=== PATIENT | male | born 1965 | race Caucasian/White ===

== ENCOUNTER → 2016-09-27 | Day surgery (SDC) | payer BC ==
[2016-09-24 10:38] VITALS: Ht 185.4 cm; Wt 79.5 kg
[~2016-09-27] VITALS: Ht 185.4 cm; Wt 79.5 kg
[~2016-09-27] MED LIST: 500ML BSS 0.3ML EPI 1:1000PF IRRIG ONE; ACETAMINOPHEN 325 MG TAB PO PRN; ALBU18002 INH; AMLO10TA4 PO; AMVISC PLUS 0.8ML SYRINGE INT OCU ONE; ATROPINE SULFATE 0.1 MG/ML 5ML SYR IV PRN; BENA20TA14 PO; BRIMONIDINE TART 0.2% OP SOLN PER DROP CHARGE ONE; BSS FLUSH ONE; ENDOCOAT 0.85ML SYRINGE INT OCU ONE; EpHEDrine SULFATE INJ 50 MG/ML AMP IV PRN; EpINEphrine INJ 1MG/ML AMP 1 MG/ML AMP ONE; FENTANYL CITRATE INJ 50 MCG/1 ML 2 ML VIAL ONE; FLUT0.15 INH; LACTATED RINGER'S 1000ML 500 ML IV SCH; LIDOCAINE 4% OP SOLN DROP CHARGE ONE; LIDOCAINE 4% OP SOLN DROP CHARGE OPL SCH; LIDOCAINE HCL 1% MPF 2 ML VIAL ONE; LORA10TA44 PO; MAGN1CAP2 PO; METO100T14 PO; MIDAZOLAM HCL 1 MG/ML 2ML VIAL ONE; MOXIFLOXACIN OPH SOLN PER DROP CHARGE ONE; POVIDONE-IODINE OP SOLN 30 ML BTL ONE; PROPARACAINE 0.5% OP SOLN PER DROP CHARGE OPL SCH; TOBRAMYCIN/DEXAMETHASONE OPH OINT PER APPLN CHARGE ONE; TRYPAN BLUE 0.06% FOR SURGI CENTER ONLY OP ONE
[2016-09-27] MEDS: PHENYLEPHRINE HCL 2.5% OP SOLN PER DROP CHARGE OPL SCH ×2 (08:37→08:42)
--- NOTE | 2016-09-27 08:37 | History & Physical Bridge - [place] ---
H&P Re-Evaluation Bridge Note: I have examined the patient, reviewed the History & Physical and in the interval since the performance of the History & Physical I have noted the following changes of clinical significance: No changes noted
[2016-09-27] MEDS: TROPICAMIDE 1% OP SOLN PER DROP CHARGE OPL SCH ×2 (08:38→08:43)
[2016-09-27] MEDS: CYCLOPENTOLATE HCL 1% OP SOLN PER DROP CHARGE OPL SCH ×2 (08:39→08:44)
[2016-09-27] MEDS: KETOROLAC 0.5% OP SOLN PER DROP CHARGE OPL SCH ×2 (08:40→08:45)
[2016-09-27] MEDS: MOXIFLOXACIN OPH SOLN PER DROP CHARGE OPL SCH ×2 (08:41→08:46)
--- NOTE | 2016-09-27 10:13 | Discharge Instructions-SurgCtr ---
Discharge Instructions Visit Reason for Visit: Cataract Left Eye Discharge Discharge Diagnosis / Problem: cataract left eye Discharge Goals Goal(s): Improve function Activity Recommendations Activity Limitations: per Instructions/Follow-up section Lifting Limitations: no more than 5 pounds Anesthesia . Post Anesthesia Instructions: If you have had General Anesthesia or IV Sedation: * Do not drive today. * Resume driving when surgeon permits. * Do not make important decisions or sign legal documents today. * Call surgeon for: 1. Temperature elevations greater than 101 degrees F. 2. Uncontrollable pain. 3. Excessive bleeding. 4. Persistent nausea and vomiting. 5. Medication intolerance (nausea, vomiting or rash). * For nausea and vomiting use only clear liquids such as: tea, soda, bouillon until nausea subsides, then gradually increase diet as tolerated. * If you have any concerns or questions, call your surgeon's office. If physician is unavailable and it is an emergency, call 911 or go to the nearest emergency room. . Instructions / Follow-Up Instructions / Follow-Up ACTIVITY RECOMMENDATIONS: * Light activities * You may walk outside, read, watch television. * Mild irritation and blurred vision are common for the first few days, redness around the white part of the eye is common. MEDICATIONS: Resume previous medications unless instructed otherwise by your surgeon. Eye drops (today and tomorrow): Ofloxacin - one drop in operative eye every 2 hours while awake Prednisolone 1% - one drop in operative eye every 2 hours while awake Bromfenac - one drop in operative eye once daily SPECIAL CARE INSTRUCTIONS: * If any problems or concerns, please call Dr. Huang's office at . * Keep plastic shield taped over eye to sleep at night. * Keep plastic shield taped over eye except to administer eye drops. * Keep plastic shield on until office visit the following day. FOLLOW UP VISIT: Follow-up with Dr. Huang in the [place] office as scheduled. If not already scheduled, please call the office at . Diet Recommendations Home Diet: resume previous diet Procedures Procedures Performed: Left Cataract Phacoemulsification With Intraocular Lens Implant Pending Studies Studies pending at discharge: no Medical Emergencies . Who to Call and When: Medical Emergencies: If at any time you feel your situation is an emergency, please call 911 immediately. . Non-Emergent Contact Non-Emergency issues call your: Quality Control Engineer . . "Provider Documentation" section prepared by Justen Huang.
--- NOTE | 2016-09-27 10:13 | [facility] Post Operative Brief Note ---
Immediate Operative Summary Operative Date Sep 27, 2016. Pre-Operative Diagnosis cataract left eye Post-Operative Diagnosis same Procedure(s) Performed Left Cataract Phacoemulsification With Intraocular Lens Implant Surgeon Dr. Huang Social Organization Professor Surgeon(s) none Estimated Blood Loss 0 Findings cataract left eye Specimens none Complication(s) None Disposition Recovery Room / PACU
[2016-09-27 10:17] VITALS: TEMP 37.6
[2016-09-27 10:39] VITALS: BP 132/85; PULSE 85; O2SAT 95
--- NOTE | 2016-09-27 10:45 | Anesthesia Progress Nt - [facility] ---
Anesthesia Post Op Note Date & Time Sep 27, 2016 at 10:46 Vital Signs Pain Intensity: 0 Vital Signs Past 12 Hours Date Time Temp Pulse Resp B/P Pulse Ox O2 Delivery O2 Flow Rate FiO2 09/27/16 10:39 85 18 132/85 95 Room Air 09/27/16 10:17 37.6 85 16 120/79 94 Room Air 09/27/16 08:33 36.6 88 16 168/96 94 Room Air Notes Mental Status: alert / awake / arousable, participated in evaluation Pt Amnestic to Procedure: Yes Nausea / Vomiting: adequately controlled Pain: adequately controlled Airway Patency, RR, SpO2: stable & adequate BP & HR: stable & adequate Hydration State: stable & adequate Anesthetic Complications: no major complications apparent
--- NOTE | 2016-09-27 10:58 | OPERATIVE REPORT ---
DATE OF OPERATION: 09/27/2016 PREOPERATIVE DIAGNOSIS: Complex white cataract, left eye. POSTOPERATIVE DIAGNOSIS: Same. PROCEDURE PERFORMED: Phacoemulsification cataract extraction with intraocular lens placement with the assistance of Vision Blue capsular stain left eye. OPERATION AND FINDINGS: After informed consent was obtained in the holding area the patient was wheeled back to the Operating Room where cardiac monitoring leads and oxygen by nasal cannula was administered by Anesthesia. Gentle IV sedation was given, and the patient's left eye was prepped and draped in usual sterile fashion. A wire lid speculum was placed into the left eye and the operating microscope was swung into position. Using 0.12 forceps and a Supersharp blade a paracentesis port was made 3 o'clock hours away from the 3 o'clock position of patient's left eye. 1% non-preserved Lidocaine was then injected into the anterior chamber for anesthesia. It should be noted that prior to capsulorrhexis and viscoelastic placement air was injected into the anterior chamber through the paracentesis underneath which vision blue was used to stain the capsular bag. This was then irrigated out of the eye and viscoelastic material was placed in the eye. Prior to the capsulorrhexis a 30 gauge half inch needle was used to stab the center of the lens capsule and at aspirate some liquified cortex from the lens in order to decrease the pressure of the lens. A 2.2 mm keratotome blade was then used to make a shelved clear corneal incision at the 3 o'clock position of the patient's left eye. Amvisc was injected into the anterior chamber and a cystotome and Utrata forceps were used to perform a curvilinear capsulorrhexis. BSS on a hydrodissection cannula was used to hydrodissect the lens nucleus away from the capsular bag. The phacoemulsification handpiece was then used in a stop and chop fashion to remove the lens nucleus. The irrigation and aspiration handpiece was then used to remove the residual cortical material. Amvisc was injected into the capsular bag and anterior chamber and a Bausch \T\ Lomb MX60, 21.0 Diopter intraocular lens was injected into the capsular bag. Irrigation and aspiration handpiece was used to remove the residual viscoelastic material. The wounds were hydrated and noted to be watertight. The wire lid speculum was removed from the eye. Vigamox, Brimonidine, and TobraDex ointment were placed on the eye and it was shielded. EndoCoat was also used extensively throughout the case to protect the cornea endothelium. DISPOSITION: The patient tolerated the procedure well and was wheeled to the post anesthesia care unit in stable condition. I attest to the content of the Intraoperative Record and any orders documented therein. Any exceptions are noted below. I attest to the content of the Intraoperative Record and any orders documented therein. Any exceptions are noted below. MTDD
== END | disposition home or self-care (01) ==
LOC: X.SURG 08:24
PROVIDERS: ATTEND Ophthalmology
DX: H26.9 Unspecified cataract (principal); I10 Essential (primary) hypertension

== ENCOUNTER → 2016-10-11 | Day surgery (SDC) | payer BC ==
[2016-10-07 09:22] VITALS: Ht 185.4 cm; Wt 79.5 kg
[~2016-10-11] VITALS: Ht 185.4 cm; Wt 79.5 kg
[~2016-10-11] MED LIST changes: -LIDOCAINE 4% OP SOLN DROP CHARGE OPL SCH; +LIDOCAINE 4% OP SOLN DROP CHARGE OPR SCH; -PROPARACAINE 0.5% OP SOLN PER DROP CHARGE OPL SCH; +PROPARACAINE 0.5% OP SOLN PER DROP CHARGE OPR SCH; -TRYPAN BLUE 0.06% FOR SURGI CENTER ONLY OP ONE
[2016-10-11] MEDS: PHENYLEPHRINE HCL 2.5% OP SOLN PER DROP CHARGE OPR SCH ×2 (10:17→10:22)
[2016-10-11] MEDS: TROPICAMIDE 1% OP SOLN PER DROP CHARGE OPR SCH ×2 (10:18→10:23)
[2016-10-11] MEDS: CYCLOPENTOLATE HCL 1% OP SOLN PER DROP CHARGE OPR SCH ×2 (10:19→10:24)
[2016-10-11] MEDS: KETOROLAC 0.5% OP SOLN PER DROP CHARGE OPR SCH ×2 (10:20→10:25)
[2016-10-11] MEDS: MOXIFLOXACIN OPH SOLN PER DROP CHARGE OPR SCH ×2 (10:21→10:31)
[2016-10-11 11:21] VITALS: TEMP 36.8
--- NOTE | 2016-10-11 11:21 | [facility] Post Operative Brief Note ---
Immediate Operative Summary Operative Date Oct 11, 2016. Pre-Operative Diagnosis Cataract right eye Post-Operative Diagnosis same Procedure(s) Performed Right Cataract Phacoemulsification With Intraocular Lens Implant Surgeon Dr Huang Deck Mate Surgeon(s) 0 Estimated Blood Loss 0 Findings cataract right eye Specimens 0 Complication(s) None Disposition Recovery Room / PACU
--- NOTE | 2016-10-11 11:21 | Discharge Instructions-SurgCtr ---
Discharge Instructions Visit Reason for Visit: Cataract Right Eye Discharge Discharge Diagnosis / Problem: cataract right eye Discharge Goals Goal(s): Improve function Activity Recommendations Activity Limitations: per Instructions/Follow-up section Lifting Limitations: no more than 5 pounds Anesthesia . Post Anesthesia Instructions: If you have had General Anesthesia or IV Sedation: * Do not drive today. * Resume driving when surgeon permits. * Do not make important decisions or sign legal documents today. * Call surgeon for: 1. Temperature elevations greater than 101 degrees F. 2. Uncontrollable pain. 3. Excessive bleeding. 4. Persistent nausea and vomiting. 5. Medication intolerance (nausea, vomiting or rash). * For nausea and vomiting use only clear liquids such as: tea, soda, bouillon until nausea subsides, then gradually increase diet as tolerated. * If you have any concerns or questions, call your surgeon's office. If physician is unavailable and it is an emergency, call 911 or go to the nearest emergency room. . Instructions / Follow-Up Instructions / Follow-Up ACTIVITY RECOMMENDATIONS: * Light activities * You may walk outside, read, watch television. * Mild irritation and blurred vision are common for the first few days, redness around the white part of the eye is common. MEDICATIONS: Resume previous medications unless instructed otherwise by your surgeon. Eye drops (today and tomorrow): Ofloxacin - one drop in operative eye every 2 hours while awake Prednisolone 1% - one drop in operative eye every 2 hours while awake Bromfenac - one drop in operative eye once daily SPECIAL CARE INSTRUCTIONS: * If any problems or concerns, please call Dr. Huang's office at . * Keep plastic shield taped over eye to sleep at night. * Keep plastic shield taped over eye except to administer eye drops. * Keep plastic shield on until office visit the following day. FOLLOW UP VISIT: Follow-up with Dr. Huang in the [place] office as scheduled. If not already scheduled, please call the office at . Diet Recommendations Home Diet: resume previous diet Procedures Procedures Performed: Right Cataract Phacoemulsification With Intraocular Lens Implant Pending Studies Studies pending at discharge: no Medical Emergencies . Who to Call and When: Medical Emergencies: If at any time you feel your situation is an emergency, please call 911 immediately. . Non-Emergent Contact Non-Emergency issues call your: Retail Planning Manager . . "Provider Documentation" section prepared by Justen Huang.
--- NOTE | 2016-10-11 11:36 | Anesthesia Progress Nt - [facility] ---
Anesthesia Post Op Note Date & Time Oct 11, 2016 at 11:36 Vital Signs Pain Intensity: 0 Vital Signs Past 12 Hours Date Time Temp Pulse Resp B/P Pulse Ox O2 Delivery O2 Flow Rate FiO2 10/11/16 11:21 36.8 88 16 115/78 94 Room Air 10/11/16 10:10 37.1 82 20 143/90 97 Room Air Notes Mental Status: alert / awake / arousable, participated in evaluation Pt Amnestic to Procedure: Yes Nausea / Vomiting: adequately controlled Pain: adequately controlled Airway Patency, RR, SpO2: stable & adequate BP & HR: stable & adequate Hydration State: stable & adequate Anesthetic Complications: no major complications apparent
--- NOTE | 2016-10-11 11:38 | OPERATIVE REPORT ---
DATE OF OPERATION: 10/11/2016 PREOPERATIVE DIAGNOSIS: Cataract, right eye. POSTOPERATIVE DIAGNOSIS: Cataract, right eye. PROCEDURE: Phacoemulsification cataract extraction with intraocular lens placement, right eye. SURGEON: Dr. Huang. COMPLICATIONS: None. ESTIMATED BLOOD LOSS: None. ANESTHESIA: Topical with sedation. OPERATION AND FINDINGS: After informed consent was obtained in the holding area the patient was wheeled back to the Operating Room where cardiac monitoring leads and oxygen by nasal cannula was administered by Anesthesia. Gentle IV sedation was given, and the patient's right eye was prepped and draped in usual sterile fashion. A wire lid speculum was placed into the right eye and the operating microscope was swung into position. Using 0.12 forceps and a Supersharp blade a paracentesis port was made 3 o'clock hours away from the 9 o'clock position of patient's right eye. 1% non-preserved Lidocaine was then injected into the anterior chamber for anesthesia. A 2.2 mm keratotome blade was then used to make a shelved clear corneal incision at the 9 o'clock position of his right eye. Amvisc was injected into the anterior chamber and a cystotome and Utrata forceps were used to perform a curvilinear capsulorrhexis. BSS on a hydrodissection cannula was used to hydrodissect the lens nucleus away from the capsular bag. The phacoemulsification handpiece was then used in a stop and chop fashion to remove the lens nucleus. The irrigation and aspiration handpiece was then used to remove the residual cortical material. Amvisc was injected into the capsular bag and anterior chamber and a Bausch \T\ Lomb MX60 21.5 Diopter intraocular lens was injected into the capsular bag. Irrigation and aspiration handpiece was used to remove the residual viscoelastic material. The wounds were hydrated and noted to be watertight. The wire lid speculum was removed from the eye. Vigamox, Brimonidine, and TobraDex ointment were placed on the eye and it was shielded. It should be noted that EndoCoat was used throughout the case to protect the cornea endothelium. DISPOSITION: The patient tolerated the procedure well and was wheeled to the post anesthesia care unit in stable condition. I attest to the content of the Intraoperative Record and any orders documented therein. Any exceptions are noted below. I attest to the content of the Intraoperative Record and any orders documented therein. Any exceptions are noted below. MTDD
[2016-10-11 11:41] VITALS: BP 117/75; PULSE 76; O2SAT 97
== END | disposition home or self-care (01) ==
LOC: X.SURG 10:04
PROVIDERS: ATTEND Ophthalmology
DX: H25.11 Age-related nuclear cataract, right eye (principal); I10 Essential (primary) hypertension; J44.9 Chronic obstructive pulmonary disease, unspecified; F17.210 Nicotine dependence, cigarettes, uncomplicated

== ENCOUNTER → 2017-10-03 | Outpatient (CLI) | payer BC ==
[~2017-10-03] MED LIST changes: -500ML BSS 0.3ML EPI 1:1000PF IRRIG ONE; -ACETAMINOPHEN 325 MG TAB PO PRN; -AMVISC PLUS 0.8ML SYRINGE INT OCU ONE; -ATROPINE SULFATE 0.1 MG/ML 5ML SYR IV PRN; -BRIMONIDINE TART 0.2% OP SOLN PER DROP CHARGE ONE; -BSS FLUSH ONE; -ENDOCOAT 0.85ML SYRINGE INT OCU ONE; -EpHEDrine SULFATE INJ 50 MG/ML AMP IV PRN; -EpINEphrine INJ 1MG/ML AMP 1 MG/ML AMP ONE; -FENTANYL CITRATE INJ 50 MCG/1 ML 2 ML VIAL ONE; -LACTATED RINGER'S 1000ML 500 ML IV SCH; -LIDOCAINE 4% OP SOLN DROP CHARGE ONE; -LIDOCAINE 4% OP SOLN DROP CHARGE OPR SCH; -LIDOCAINE HCL 1% MPF 2 ML VIAL ONE; -MIDAZOLAM HCL 1 MG/ML 2ML VIAL ONE; -MOXIFLOXACIN OPH SOLN PER DROP CHARGE ONE; -POVIDONE-IODINE OP SOLN 30 ML BTL ONE; -PROPARACAINE 0.5% OP SOLN PER DROP CHARGE OPR SCH; -TOBRAMYCIN/DEXAMETHASONE OPH OINT PER APPLN CHARGE ONE
[2017-10-03 18:04] LABS: BASO % 0.5 %; BASO ABS # 0.05 K/uL (0-0.2); EOS % 1.4 %; EOS ABS # 0.13 K/uL (0-0.5); HEMATOCRIT 45.3 % (42-52); HEMOGLOBIN 16.6 g/dL (14.0-18.0); IG# 0.02 K/uL (0.00-0.02); LYMPH % 17.8 %; LYMPH ABS # 1.69 K/uL (1.2-3.4); MEAN CELL VOLUME 98.7 fL (80-100); MEAN CORPUSCULAR HEMOGLOBIN 36.2 pg (25-34); MEAN CORPUSCULAR HGB CONC 36.6 g/dl (32-36); MEAN PLATELET VOLUME 9.8 fL (7.4-10.4); MONO % 17.3 %; MONO ABS # 1.64 K/uL (0.11-0.59); NEUT % 62.8 %; NEUT ABS # 5.95 K/uL (1.4-6.5); PLATELET COUNT 335 K/uL (130-400); RED CELL DISTRIBUTION WIDTH CV 12.7 % (11.5-14.5); WHITE BLOOD COUNT 9.48 K/uL (4.8-10.8)
[2017-10-03 18:26] LABS: BLOOD UREA NITROGEN 10 mg/dl (7-18); CARBON DIOXIDE 22 mmol/L (21-32); CREATININE 0.77 mg/dl (0.60-1.40); GLUCOSE 82 mg/dl (70-99); POTASSIUM 4.1 mmol/L (3.5-5.1); SODIUM 126 mmol/L (136-145)
== END | disposition home or self-care (01) ==
LOC: C.LABMFLN 13:52
PROVIDERS: ATTEND Family Medicine
DX: E87.1 Hypo-osmolality and hyponatremia (principal)

== ENCOUNTER 2019-12-06 13:28 | Inpatient (IN) ==
[2019-12-06] MEDS ORDERED: SODIUM CHLORIDE 0.9% 250 ML IV PRN ×2 (14:04→20:00)
[2019-12-06] MEDS ORDERED: ACETAMINOPHEN 325 MG TAB PO PRN (14:04)
--- NOTE | 2019-12-06 15:35 | XRay Report ---
SINGLE VIEW CHEST CLINICAL HISTORY: Pleural effusion. FINDINGS: An AP, portable, upright chest radiograph is compared to study dated 12/04/2019. Correlation is made with chest CT dated 12/03/2019. The cardiomediastinal silhouette is unremarkable. Emphysemato us change is noted. There is a moderate loculated pleural effusion at the left lung base with associa ector consolidation in the left mid to lower lung. Loculated fluid and consolidation is also seen at th e left apex. Mild patchy consolidation is seen at the right lung base and there is a trace right pleu ral effusion. Question trace left apical pneumothorax. The bony thorax is grossly intact. IMPRESSION: 1. Emphysema. 2. There is a multiloculated left pleural effusion as above with associated airspace consolidation. 3. Mild patchy consolidation is seen at the right lung base with a trace right pleural effusion. 4. Question trace left apical pneumothorax. ACT 112: Negative or not required by law. Electronically signed by: Desean Hull M.D. 12/06/2019 3:34 PM
[2019-12-06 15:56] LABS: Hematocrit (blood only) 20.5 % (42-52); Hemoglobin 6.9 g/dL (14.0-18.0); Mean Corpuscular Hemoglobin 30.5 pg (25-34); Mean Corpuscular Hgb Conc 33.7 g/dL (32-36); Mean Corpuscular Volume 90.7 fL (80-100); Mean Platelet Volume 8.5 fL (7.4-10.4); Platelet Count 482 K/uL (130-400); RDW Coefficient of Variation 15.3 % (11.5-14.5); RDW Standard Deviation 50.8 fL (36.4-46.3); Red Blood Count 2.26 M/uL (4.7-6.1); White Blood Count 18.24 K/uL (4.8-10.8)
[2019-12-06 15:58] LABS: Albumin Level 1.3 gm/dl (3.4-5.0); BUN Creatinine Ratio 29.1 (10-20); Calcium 8.5 mg/dl (8.5-10.1); Creatinine Clr Calc Pharmacy 131.7 ml/min; Est GFR (African American) 127.1; Est GFR (Non-African American) 109.7; Magnesium 1.8 mg/dl (1.8-2.4); Potassium 3.5 mmol/L (3.5-5.1)
[2019-12-06 16:01] LABS: Albumin Globulin Ratio 0.3 (0.9-2); Bilirubin,Total 0.7 mg/dl (0.2-1); Total Protein 6.3 gm/dl (6.4-8.2)
--- NOTE | 2019-12-06 16:08 | History & Physical Report ---
Date of Service December 06, 2019 Assessment & Plan (1) Pleural effusion: DDX: malignancy, hemothorax, empyema Initial noncontrast CT chest on 11/27/19 at [facility] with Multiple left pleural nodules with massive left pleural effusion causing mass-effect with left lung collapse, rightward mediastinal shift, inversion of the left jono-diaphragm. A pigtail catheter was placed with repeat contrast CT chest on 11/29/2019 with impression of decrease in the size of left pleural effusion with pigtail catheter in place in inferior aspect of the left hemithorax. [facility] Contrast CT chest on 12/03/2019: Impression redemonstration of complex left-sided pleural fluid collection with further decreased in volume from CT on 11/29/2019. Extensive pleural soft tissue nodularity implies malignancy, including some soft tissue that appears to be invading the chest wall. Left lower lobe cavitary mass and nodule. Resolving consolidation and groundglass opacity in the right lung Pt transferred from [facility] for thoracic surgery evaluation Here CXR: There is a multiloculated left pleural effusion as above with ass ociated airspace consolidation. Mild patchy consolidation is seen at the right lung base with a trace right pleural effusion. Question trace left apical pneumothorax. Pt currently comfortable without any SOB, CP, is afebrile, P: 75, R: 18, BP: 105/61, 98% on 2L NC Dr Toro was able to review CT scan from [facility] and is aware and plans on procedure 12/07/2019 (2) Anemia: Initial Hgb: 8.9 on 11/27/2019 at [facility], down trended to 5.8 on 12/06/2019. Patient received PRBC at [facility], last was this morning. Pt was seen by heme/onc at [facility] and was suspecting underlying malignancy. 12/05/2019 [facility] labs: Iron: 9 (45-176), Iron Bindin (250-425), Ferritin: 1379 (30-400); 12/06/2019 [facility] labs: folate: 8.4 (>4.5), B12: 488 (232-1245) Current Hgb: 6.9 Will repeat H&H tonight to determine if further PRBC transfusion needed Monitor H&H Anticipate pt needing outpatient heme/onc follow up (3) Hyponatremia: Initial Na: 107 on 11/27/2019, treated with hypertonic saline at [facility] under direction of nephrology with repeat sodium of 128 on 12/06/2019. Suspecting underlying malignancy Current Na: 124 Monitor BMP Consider nephrology consult if worsening. Anticipate pt needing outpatient follow up (4) Tachycardia: sinus tachycardia Continue metoprolol (5) HTN (hypertension): Currently with BP's on low side Hold home BP meds (6) Alcohol use: 3-4 drinks a day. Last drink 11/26/2019. No history ETOH withdrawal or seizures ETOH cessation encouraged (7) Tobacco use: Denies nicotine patch Is motived to not resume smoking upon discharge. Encouraged smoking cessation DVT Prophylaxis -SCDs Full Code as per discussion with pt Pt not followed with PCP for years. Pt was seen and care coordinated with Dr Lassiter. See addendum Admission and Anticipated Discharge Date Admission Date: December 06, 2019 History of Present Illness Chief Complaint: SOB Primary Care Provider: Desean Barriga MD Pt is 54 y/o M with PMH HTN, COPD, tobacco use, EtOH use presented to [facility] as transfer from [facility] for large left pleural effusion. Patient was initially seen at [facility] ED on 11/16/2019 for SOB and was treated for suspected COPD exacerbation with no imaging completed at that time and was discharged with albuterol inhaler. Patient returned to [facility] ER on 11/27/2019 for SOB. It is reported patient has had SOB, productive cough x1 month with decreased appetite without fever or chills. He was found to have pulse ox 90% on room air and chest x-ray with complete left-sided opacification and was admitted to hospital for further work-up and treatment. Patient had negative Legionella antigen. Pt had negative COVID-19 testing. -Pt had noncontrast CT chest on 11/27/19 with impression: Multiple left pleural nodules with massive left pleural effusion causing mass-effect with left lung collapse, rightward mediastinal shift, inversion of the left jono-diaphragm. -A pigtail catheter was placed. Patient had repeat contrast CT chest on with impression of decrease in the size of left pleural effusion with pigtail catheter in place in inferior aspect of the left hemithorax. Pt treated forpossible pneumonia. -Contrast CT chest on 12/03/2019: Impression redemonstration of complex left- sided pleural fluid collection with further decreased in volume from CT on 11/29/2019. Extensive pleural soft tissue nodularity implies malignancy, including some soft tissue that appears to be invading the chest wall. Left lower lobe cavitary mass and nodule. Resolving consolidation and groundglass opacity in the right lung favored to represent resolving acute lung injury, nonspecific but potentially related to aspiration of contralateral lung contents. Patient hospital course also complicated by hyponatremia with sodium of 107 on 11/27/2019. Being followed by nephrology and thought was euvolemic to slightly hypervolemic. Initially received hypertonic saline with repeat sodium of 128 on 12/06/2019. Patient also with anemia initial hemoglobin 8.9 and has down trended to 5.8 on 12/06/2019. Patient received PRBCs at [facility] (discharge summary reports 2 units), most recent PRBC transfusion this morning. Patient with noted tachycardia during hospital course. Patient was on home Lopressor 100 mg twice daily which was changed to Toprol-XL 100 mg twice daily. Cardiology was consulted and recommended continued beta-meet for rate manag ement. Patient was felt to examine volume overloaded and is reported patient was given torsemide 20mg daily on 12/04/19 and 12/05/2019 started on IV Lasix 20mg BID. Had normal high-sensitivity troponin and proBNP unremarkable on 11/27/2019. Had echo 12/03/2019: Multifocal atrial tachycardia during the study. EF: 55-59. Non-dilated cardiac chambers. Mild tricuspid regurgitation. Proximal inferior vena cava is dilated. Dilated IVC with reduced collapsability with sniff indicates an elevated right atrial pressure of 15mmHg. The estimated pulmonary artery systolic pressure is 48mm Hg. 12/06/19 [facility] wishes to transfer patient secondary to needing thoracic surgeon evaluation. It is reported patient did not want to go to [facility] at this time and wished to go to [facility]. Dr. Toro was contacted and agrees to accept patient and is recommending thoracoscopy. Patient's reported heart at 109 with sinus tachycardia, BP 105/73, 93% on room air at time of discussion on the morning of 12/06/2019. Pt presents to [facility] and currently reports feeling good. Denies SOB, CP, dizziness. Denies fever/chills, diaphoresis, N/V/D/C, LEMUS, dizziness, syncope, vision changes, neck pain, orthopnea, palpitations, sore throat, choking, otalgia, rhinorrhea, abdominal pain, paresthesias, weakness, extremity weakness, extremity edema, rashes, urinary symptoms. Allergies Allergy/AdvReac Type Severity Reaction Status Date / Time hydrochlorothiazide AdvReac Mild DEHYDRATION Verified 10/11/16 10:08 Home Medications Home Medications Medication Instructions Recorded Confirmed Type amlodipine 10 mg tablet 10 mg PO DAILY #90 tab 02/23/19 12/06/19 Rx metoprolol tartrate 100 mg tablet 100 mg PO BID #180 tab 10/22/19 12/06/19 Rx benazepril 20 mg PO DAILY 12/06/19 12/06/19 History Past Med/Surg History Medical History Alcohol use HTN (hypertension) Tobacco use Surgical History (Updated 12/06/19 @ 17:14 by Hortencia Maharaj PA-C) No significant past surgical history Family History (Updated 12/06/19 @ 17:15 by Hortencia Maharaj PA-C) Grandfather (Maternal) Skin cancer Other Coronary heart disease Hypertension Social History (Updated 12/06/19 @ 17:15 by Hortencia Maharaj PA-C) Preferred Language: Eritrean Communication Ability: Effective Beliefs That Will Affect Care: None Current Living Situation: Spouse Other Information That Helps Us Care for You: No Feels Safe at Home: Yes Safety Concerns: Feels Safe At This Time Smoking Status: Current every day smoker Cigarettes Per Day: 1.5 ppd ; Hx Alcohol Use: Yes (3-4 drinks of vodka a day) Hx Substance Use: No Review of Systems Review of Systems: All systems reviewed & are unremarkable except as noted in HPI & below Physical Exam Physical Exam: General: no acute distress, WDWN Head: normocephalic, atraumatic Eyes: PERRL, EOM's intact, conjunctiva non-injected, anicteric ENT: normal inspection external ears, nose, mucous membranes moist Neck: supple, trachea midline, non-tender Lungs: no respiratory distress, 98% on 2L NC, +rales left mid and lower lung field; left chest wall with dressing in place CV: RRR, no murmur, no pretibial edema Abd: normal BS, soft, non-tender Ext: no cyanosis, no calf tenderness Neuro: A&O x 3, no focal deficits noted, normal affect Skin: warm, dry Results & Data Results & Data ([facility]) Vital Signs (Past 12 Hours) Vital Signs Temp Pulse Resp BP Pulse Ox 12/06/19 15:27 36.9 C 75 18 105/61 98 Laboratory Results Short CBC 12/06/19 Range/Units 15:29 WBC 18.24 H (4.8-10.8) K/uL Hgb 6.9 L* (14.0-18.0) g/dL Hct 20.5 L* (42-52) % Plt Count 482 H (130-400) K/uL BMP 12/06/19 15:29 Sodium 124 L Potassium 3.5 Chloride 95 L Carbon Dioxide 30 BUN 20 H Creatinine 0.67 Glucose 95 Calcium 8.5 Liver Function 12/06/19 Range/Units 15:29 Total Bilirubin 0.7 (0.2-1) mg/dl AST 37 (15-37) U/L ALT 28 (12-78) U/L Alkaline Phosphatase 83 (45-117) U/L Albumin 1.3 L (3.4-5.0) gm/dl Diagnostic Findings CXR: IMPRESSION: 1. Emphysema. 2. There is a multiloculated left pleural effusion as above with associated airspace consolidation. 3. Mild patchy consolidation is seen at the right lung base with a trace right pleural effusion. 4. Question trace left apical pneumothorax. ECG Rate (beats per minute): 109 Rhythm: sinus tachycardia Code Status & VTE Plan VTE Prophylaxis Plan VTE Prophylaxis will be ordered: Yes Supervising Physician Co-Signing Physician Notes I have seen and examined the patient and have discussed the case with the provider above. I agree with the assessment and plan as stated. 54 yo smoker with a complicated pleural effusion requiring pigtail catheter and recent hospitalization for 10 days at [facility]. Transferred here today for consideration of thoracoscopy which is planned for am. H/H repeat is less than threshold so will give additional two units of blood with [address] Toro's recommendation. Physical exam as above with coarse rhonchi and min breath sounds on left lung compared with clear lung to auscultation on the right side. Otherwise he looks well although somewhat deconditioned from his prolonged hospital stay. Supplemental oxygen in place which is not a home med, but no increased work of breathing. Hyponatremia present, however, he will effectively be on a fluid restriction while NPO in prep for surgery, so will monitor repeat check in am, and involve nephro if needed. Suspect SIADH if this is malignancy. Appears euvolemic and hydrated on exam. Await results of thoracoscopy in am. Maikol, DO
[2019-12-06 16:09] LABS: Basophils # (auto) 0.02 K/uL (0-0.2); Basophils % (auto) 0.1 %; Eosinophils # (auto) 0.04 K/uL (0-0.5); Eosinophils % (auto) 0.2 %; Immature Granulocytes # (auto) 0.09 K/uL (0.00-0.02); Immature Granulocytes % (auto) 0.5 %; Lymphocytes # (auto) 1.01 K/uL (1.2-3.4); Lymphocytes % (auto) 5.5 %; Monocytes % (auto) 15.9 %; Neutrophils # (auto) 14.18 K/uL (1.4-6.5); Neutrophils % (auto) 77.8 %; RBC Morphology Unremarkable
--- NOTE | 2019-12-06 17:41 | Electrocardiogram Report ---
Test Reason : Blood Pressure : / mmHG Vent. Rate : 109 BPM Atrial Rate : 109 BPM P-R Int : 186 ms QRS Dur : 090 ms QT Int : 344 ms P-R-T Axes : 057 055 031 degrees QTc Int : 463 ms Sinus tachycardia with frequent Premature atrial complexes No previous ECGs available Confirmed by Arcadio Sarkar ([id number]) on 12/06/2019 5:41:36 PM Referred By: REFERRED SELF Confirmed By:Arcadio Sarkar
[2019-12-06] MEDS ORDERED: FUROSEMIDE 10 MG in SYRINGE 0 ML IV ONE (20:00)
[2019-12-06] MEDS ORDERED: ACETAMINOPHEN 325 MG TAB PO SCH (20:00)
[2019-12-06 20:38] LABS: Hematocrit (blood only) 20.3 % (42-52); Hemoglobin 6.8 g/dL (14.0-18.0)
[2019-12-06] MEDS: METOPROLOL TARTRATE 100 MG TAB PO SCH (21:09)
--- NOTE | 2019-12-06 21:30 | Consultation Report ---
DATE OF CONSULTATION: 12/06/2019 REASON FOR CONSULTATION: Complicated left pleural effusion. HISTORY OF PRESENT ILLNESS: The patient is a 54-year-old man who really has been fairly healthy except for the fact that he started smoking about 40 years ago and has smoked up to 2 packs of cigarettes a day. He also imbibes a good deal of alcohol. The patient states that he drinks 6-8 beers a night and also drinks 2-3 vodka drinks a night. He smokes between 1.5-2 packs of cigarettes a day, although he quit smoking when he became ill. The patient states that about 6 weeks ago, he started noticing he was short of breath. He denies fevers. He thinks he may have had some mild sweats at night. He denies a productive cough, although he did have a cough. He became markedly short of breath and was unable to work. 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 He denies asbestos exposure. He states he was around a lot of aerosolized paints in the pots that he was in a former job. He lives at home with his . He has 3 children they are out of the house. The patient denies weight loss. He states he has been eating well and is having good appetite. About 3 weeks ago on 11/16/2019 the patient went to the Emergency Room because he was so short of breath. He was discharged home from [facility] only to return to his primary care physician, Dr. Desean Barriga [address] Barriga felt that he may have exacerbation of his COPD and did COVID-19 testing, this all came back negative; however, he was also put on Zithromax. He did not respond to this. He has had some days where he may have felt a little better, but not to the point where he can return to work. He went in to see Dr. Barriga again on 11/26/2019, Dr. Barriga asked him to go to the Emergency Room where he was admitted. He has been in [facility] for 10 days. A pigtail catheter was placed and a large amount of fluid was drained; however, while he felt better, we do not have a diagnosis. It does not appear to be a straightforward infection, although it could be an empyema that he has been partially treated: One other great concern about this patient is that the patient has a drop in his hemoglobin. Last year his hemoglobin was 16. It has now been as low as 5.8. It is 6.6 this morning. He has had no hemoptysis. He has had no hematuria. The patient denies any GI problems at all. He denies hematemesis or hematochezia. He has had no tarry stools. He states he has moved his bowels 4 times in the last 3 days and they have been normal. He is eating well. He denies abdominal pain and has had no nausea or vomiting. The patient denies any joint pain. PAST MEDICAL HISTORY: 1. (Recently) anemia, hyponatremia, tachycardia (sinus), lower extremity edema, and chronic tobacco and alcohol use with COPD. PAST SURGICAL HISTORY: No significant past surgical history. HOME MEDICATIONS: 1. Amlodipine. 2. Metoprolol. 3. Benazepril. ALLERGIES: 1. HYDROCHLOROTHIAZIDE (questionable). SOCIAL HISTORY: The patient lives at home with his of many years. He does smoke and drink as noted. He was working until he became ill over the last several weeks. FAMILY MEDICAL HISTORY: He has had a history of his parents having coronary artery disease, hypertension and he had a grandfather who had skin cancer, but he does not know if this was a melanoma or not. REVIEW OF SYSTEMS: The patient states his weight is stable from his standpoint. He does have lower extremity edema. He states this is a chronic issue and it happens "if I stand on concrete for very long, but it goes away if I get off my feet." He has had more swelling in the last couple of weeks. He is hypoalbuminemic. He denies chest pain. He has had no radiation to his jaw or to his arm. Denies palpitations. Neurologically, he has had no focal deficits. He had no visual or auditory issues. PHYSICAL EXAMINATION: GENERAL: This is an ill-appearing male who stands 5 feet 10 inches tall and weighs about 165 pounds. HEENT: His sclerae are pale. His extraocular movements are intact. He has multiple what appeared to be sebaceous cyst over his right ear and over his face. His pupils are small but reactive. His teeth are in poor repair and are discolored from "chewing tobacco" He has no obvious oral mucosal lesions. Tongue is midline. Oral mucosa is moist. NECK: Supple. He has no supraclavicular or cervical lymphadenopathy, neck vein distention or thyromegaly. Heart He is tachycardic at about 105 beats per minute. LUNGS: He has decreased breath sounds on the left. He has a dressing on his left where he had a pigtail catheter and which is faintly stained with fluid. He does have decreased breath sounds in the left lung field. ABDOMEN: Soft, nontender. No evidence of ascites or hepatosplenomegaly. EXTREMITIES: He does have 1+ edema with no discoloration of his pretibial areas, however, he has no joint effusions. He has excellent peripheral pulses. NEUROLOGIC: Completely intact. ASSESSMENT AND PLAN: 1. Complex left pleural effusion with anemia. It appears the elementary school principal/oncologist evaluated him at [place] and they feel we are dealing with a malignancy. It is possible that this could be a mesothelioma based on the CT scan. At this point, we are going to do a thoracoscopy, will do a single incision initially and do a biopsy with frozen section. If this is obviously an infection, we will do a decortication. However, if it is a mesothelioma, we will stop there and consider him for possible major resection. We may leave a PleurX in tomorrow. We had a long discussion about this at the bedside today. We will put him on the schedule for tomorrow. JOSE
--- NOTE | 2019-12-06 22:41 | Anesthesiology Consultation ---
Date of Service December 06, 2019 Assessment & Plan (1) Encounter for pre-operative examination: Chart Review Chart Review: Pending: Refer to Additional Notes / Consult section (Will recheck CBC in AM) Patient states not having alcohol for 17 days. Consults Requested none Proposed Anesthesia Risk / Benefits Reviewed With: PT / POA / Parent / Guardian, Accepts Plan and Informed Consent Obtained History Surgery Operation Date: 12/07/19 07:30 Proposed Procedures p Video Assisted Thoracoscopy(Left) - Bart Toro MD, FACS Height/Weight Height: 5 ft 10 in Weight: 73.1 kg Allergies Allergy/AdvReac Type Severity Reaction Status Date / Time hydrochlorothiazide AdvReac Mild DEHYDRATION Verified 10/11/16 10:08 Medications Home Medications Medication Instructions Recorded Confirmed Last Taken amlodipine 10 mg tablet 10 mg PO DAILY #90 tab 02/23/19 12/06/19 Unknown metoprolol tartrate 100 mg tablet 100 mg PO BID #180 tab 10/22/19 12/06/19 Unknown benazepril 20 mg PO DAILY 12/06/19 12/06/19 Unknown Active Medications Generic Name Dose Route Start Last Admin Trade Name Freq PRN Reason Stop Dose Admin Acetaminophen 650 mg 12/06/19 20:00 12/06/19 21:05 Tylenol PO 12/06/19 23:59 650 mg TODAY@1999 INEZ Administration Diphenhydramine HCl 25 mg 12/06/19 20:00 12/06/19 21:06 Benadryl Capsule PO 12/06/19 23:59 25 mg TODAY@1999 INEZ Administration Metoprolol Tartrate 100 mg 12/06/19 21:00 12/06/19 21:09 Lopressor PO 01/05/20 20:59 100 mg BID INEZ Administration Past Medical History Medical History Alcohol use HTN (hypertension) Tobacco use Exercise / Class Metabolic Activity III < 4 Walking/Shop/Light housework Past Family History Family History Grandfather (Maternal) Skin cancer Other Coronary heart disease Hypertension Past Surgical History Surgical History (Updated 12/06/19 @ 22:50 by Endy Jackson DO) No significant past surgical history S/P cataract extraction Past Anesthesia History No Hx of Anesthesia Complications and No Family Hx of Anesthesia Complications History of PONV No Hx of PONV and No Hx of Motion Sickness Social History Smoking Status: Current every day smoker Smoking cigarettes per day: 1.5 ppd Hx Alcohol Use: Yes (3-4 drinks of vodka a day) Hx Substance Use: No Physical Exam Vital Signs Last Vital Signs Temp 98.1 F 12/06/19 22:01 Pulse 100 H 12/06/19 22:01 Resp 21 12/06/19 19:40 BP 105/71 12/06/19 22:01 Pulse Ox 95 12/06/19 22:01 ENMT Mouth: no dentition abnormality Thyromental Distance: > or= 3.5 Finger Breadths Mallampati Class: II Neck normal visual inspection Respiratory normal respiratory effort Auscultation: + diminished lung sounds and + wheezes Cardiovascular Rate/Rhythm: regular rhythm and + tachycardic Testing Laboratory Results 12/06/19 20:25 12/06/19 15:29 Blood Type A Positive 12/06/19 15:29 Antibody Screen NEGATIVE 12/06/19 15:29 Electrocardiogram Date: 12/06/19 Sinus tachycardia with frequent Premature atrial complexes, rate 109 bpm No previous ECGs available Confirmed by Arcadio Sarkar ([id number]) on 12/06/2019 5:41:36 PM Chest X-Ray Date: 12/06/19 IMPRESSION: 1. Emphysema. 2. There is a multiloculated left pleural effusion as above with associated airspace consolidation. 3. Mild patchy consolidation is seen at the right lung base with a trace right pleural effusion. 4. Question trace left apical pneumothorax.
[2019-12-07 04:45] LABS: Basophils # (auto) 0.03 K/uL (0-0.2); Basophils % (auto) 0.2 %; Eosinophils % (auto) 0.5 %; Hematocrit (blood only) 25.4 % (42-52); Hemoglobin 8.7 g/dL (14.0-18.0); Immature Granulocytes # (auto) 0.07 K/uL (0.00-0.02); Immature Granulocytes % (auto) 0.4 %; Lymphocytes % (auto) 7.1 %; Mean Corpuscular Hemoglobin 30.6 pg (25-34); Mean Corpuscular Volume 89.4 fL (80-100); Mean Platelet Volume 8.5 fL (7.4-10.4); Monocytes # (auto) 2.52 K/uL (0.11-0.59); Monocytes % (auto) 13.8 %; Platelet Count 416 K/uL (130-400); RDW Coefficient of Variation 15.3 % (11.5-14.5); RDW Standard Deviation 50.2 fL (36.4-46.3); Red Blood Count 2.84 M/uL (4.7-6.1); White Blood Count 18.22 K/uL (4.8-10.8)
[2019-12-07 04:52] LABS: Mean Corpuscular Hgb Conc 34.3 g/dL (32-36)
[2019-12-07 05:10] LABS: BUN Creatinine Ratio 23.5 (10-20); Calcium 8.6 mg/dl (8.5-10.1); Creatinine Clr Calc Pharmacy 133.6 ml/min; Est GFR (African American) 127.9; Est GFR (Non-African American) 110.4; Potassium 3.4 mmol/L (3.5-5.1)
[2019-12-07] MEDS ORDERED: POTASSIUM CHLORIDE / WTR 10 MEQ/100 ML PLCT IV ONE (06:51)
[2019-12-07] MEDS ORDERED: ONDANSETRON INJ 2 MG/ML 2 ML VIAL IV PRN ×2 (06:57→12:42)
[2019-12-07] MEDS ORDERED: ePHEDrine sulfate 50 MG/ML AMP IV PRN (06:57)
[2019-12-07] MEDS ORDERED: fentaNYL citrate 100 MCG/2 ML VIAL IV PRN (06:57)
[2019-12-07] MEDS ORDERED: ATROPINE SULFATE 0.1 MG/ML 10ML SYR IV PRN (06:57)
[2019-12-07] MEDS ORDERED: HYDROmorphone INJ 1 MG/ML SYRINGE IV PRN (06:57)
[2019-12-07] MEDS ORDERED: ACETAMINOPHEN 1000 MG/100 ML IV IV ONE (06:59)
[2019-12-07] MEDS ORDERED: fentaNYL citrate 100 MCG/2 ML VIAL ONE ×2 (07:00→11:37)
[2019-12-07] MEDS ORDERED: ONDANSETRON INJ 2 MG/ML 2 ML VIAL ONE (07:01)
[2019-12-07] MEDS ORDERED: PROPOFOL IV EMULSION 10 MG/ML 20 ML VIAL IV ONE (07:01)
[2019-12-07] MEDS ORDERED: LIDOCAINE HCL 2% 2 ML VIAL/AMP(20MG/ML) INFIL ONE (07:01)
[2019-12-07] MEDS ORDERED: MIDAZOLAM HCL 1 MG/ML 2ML VIAL ONE (07:01)
[2019-12-07] MEDS ORDERED: DEXAMETHASONE SOD INJ 4 MG/ML VIAL ONE (07:01)
[2019-12-07] MEDS ORDERED: ROCURONIUM BROMIDE 10 MG/ML 5 ML VIAL ONE (07:01)
[2019-12-07] MEDS ORDERED: BUPIVACAINE 0.5 % 5 MG/1 ML MPF 30ML VIAL ONE (07:13)
[2019-12-07] MEDS ORDERED: SODIUM CHLORIDE 0.9% PF 50 ML VIAL ONE ×2 (07:13→08:36)
[2019-12-07] MEDS ORDERED: BUPIVACAINE LIPOSOME 1.3% 266 MG/20 ML VIAL ONE (07:14)
--- NOTE | 2019-12-07 07:29 | History & Physical Bridge Note ---
Date of Service December 07, 2019 History & Physical Bridge Note I have examined the patient, reviewed the History & Physical and in the interval since the performance of the History & Physical I have noted the following changes of clinical significance: no changes noted
[2019-12-07] MEDS ORDERED: CEFAZOLIN 250 MG/ML 1 GM VIAL ONE (08:33)
[2019-12-07] MEDS ORDERED: PHENYLEPHRINE HCL 10 MG/ML VIAL ONE ×2 (08:42→11:15)
[2019-12-07] MEDS ORDERED: SODIUM CHLORIDE 0.9% 250 ML IV PRN ×2 (09:09→10:39)
[2019-12-07] MEDS ORDERED: GLYCOPYRROLATE 0.2 MG/ML VIAL ONE (09:30)
[2019-12-07] MEDS ORDERED: NEOSTIGMINE METHYLSULFATE 5 MG/5 ML SYR ONE (09:30)
[2019-12-07] MEDS ORDERED: THROMBIN FOR SOLN 20000 UNIT KIT ONE (09:49)
[2019-12-07] MEDS ORDERED: PROGEL PLEURAL AIR LEAK SEALAN 4ML TOP ONE (10:50)
[2019-12-07] MEDS ORDERED: CEFAZOLIN 2000MG 2,000 MG/15 ML SYR IV ONE (10:53)
[2019-12-07] MEDS ORDERED: METOCLOPRAMIDE HCL INJ 5 MG/ML 2 ML VIAL ONE (12:03)
[2019-12-07] MEDS ORDERED: METOCLOPRAMIDE HCL INJ 5 MG/ML 2 ML VIAL IV ONE (12:05)
--- NOTE | 2019-12-07 12:20 | Anesthesiology Progress Note ---
Date of Service December 07, 2019 Anesthesia Post Procedure Vital Signs Vital Signs: Temp Pulse Pulse Pulse Resp BP BP 12/07/19 12:15 36.4 C L 99 H 16 12/07/19 12:05 98 H 20 12/07/19 11:55 36.2 C L 89 18 12/07/19 07:00 105 H 12/07/19 06:58 36.9 C 111 H 25 H 115/92 12/07/19 06:42 36.4 C L 117 H 19 118/73 12/07/19 03:31 37.2 C 98 H 17 12/07/19 02:27 37.1 C 98 H 18 111/74 12/07/19 02:03 37.1 C 95 H 18 115/73 12/07/19 01:44 37.2 C 98 H 19 118/74 12/07/19 00:44 36.9 C 93 H 19 117/73 12/07/19 00:14 37 C 82 110/76 12/07/19 00:00 95 H 12/06/19 23:59 79 119/61 12/06/19 23:39 37.2 C 90 104/72 12/06/19 23:21 36.6 C 81 103/56 L 12/06/19 23:01 36.4 C L 86 103/72 12/06/19 22:01 36.7 C 100 H 105/71 12/06/19 21:31 37.4 C 103 H 107/73 12/06/19 21:16 37.7 C H 112 H 107/69 12/06/19 20:54 37.0 C 108 H 108/72 12/06/19 19:40 36.7 C 109 H 21 111/74 12/06/19 15:27 36.9 C 75 18 BP Pulse Ox 12/07/19 12:15 92/56 L 93 12/07/19 12:05 91/60 L 99 12/07/19 11:55 92/60 L 100 12/07/19 07:00 12/07/19 06:58 100 12/07/19 06:42 95 12/07/19 03:31 99/60 L 96 12/07/19 02:27 95 12/07/19 02:03 97 12/07/19 01:44 97 12/07/19 00:44 95 12/07/19 00:14 96 12/07/19 00:00 12/06/19 23:59 97 12/06/19 23:39 97 12/06/19 23:21 97 12/06/19 23:01 97 12/06/19 22:01 95 12/06/19 21:31 12/06/19 21:16 98 12/06/19 20:54 94 12/06/19 19:40 95 12/06/19 15:27 105/61 98 Transfer of Care Handoff Completed per policy Notes Mental Status: alert / awake / arousable and participated in evaluation Patient Amnestic to Procedure: Yes Nausea / Vomiting: adequately controlled Pain: adequately controlled Airway Patency, RR, SpO2: stable & adequate BP & HR: stable & adequate Hydration State: stable & adequate Anesthetic Complications: no major complications apparent and Pt Satisfied with anesthetic care
--- NOTE | 2019-12-07 12:27 | XRay Report ---
XR chest 1V portable HISTORY: 54 years-old Male pleural effusion follow-up study in a patient with left pleural effusion COMPARISON: Chest radiograph 12/06/2019 TECHNIQUE: Portable AP view of the chest FINDINGS: There are 2 pleural drainage catheter is projecting over the left lung base. Subcutaneous emphysema o f the lateral left chest wall. With loculated left pleural effusion has decreased in size from compar jake. Previously questioned left apical pneumothorax is not definitively seen. Cardiomegaly with pulm onary vascular congestion. Trace right pleural effusion. Multifocal opacities throughout the left amarjit g redemonstrated. Bones appear grossly intact. IMPRESSION: 1. Loculated left pleural effusion has decreased in size from comparison status post placement of two left basilar chest tubes. 2. Previously questioned left apical pneumothorax is not visualized on today's study. 3. Trace right pleural effusion. 4. Cardiomegaly with pulmonary vascular congestion and persistent left lung opacities. ACT 112: Negative or not required by law. The above report was generated using voice recognition software. It may contain grammatical, syntax o r spelling errors. Electronically signed by: Kapil Brown M.D. 12/07/2019 12:25 PM
[2019-12-07 12:37] LABS: Hematocrit (blood only) 29.1 % (42-52); Hemoglobin 9.9 g/dL (14.0-18.0)
[2019-12-07] MEDS ORDERED: MoRPHine SULFATE 2 MG/ML CARP IV PRN (12:42)
[2019-12-07] MEDS ORDERED: OXYCODONE HCL IR 5 MG TAB (IMMEDIATE RELEASE) PO PRN (12:42)
--- NOTE | 2019-12-07 12:57 | Operative Report (OR) ---
DATE OF OPERATION: 12/07/2019 PREOPERATIVE DIAGNOSIS: Complicated left pleural effusion. POSTOPERATIVE DIAGNOSIS: Malignant process, left pleural cavity. PROCEDURES PERFORMED: 1. Left thoracoscopy with partial pleurectomy and biopsy. 2. Wedge biopsy of left upper lobe. 3. Control of hemorrhage. HISTORY OF PRESENT ILLNESS: This is a 54-year-old heavy cigarette smoker and user of alcohol who has had many exposures, although not specifically to asbestos as I got from his history. The patient has been sick for about 6 weeks. He has not lost weight, but he has been short of breath and was found to have a complicated left pleural effusion. A pigtail catheter was placed at [facility] about 10 days ago and he did well clinically from that. He had very little in the way of left chest pain. He had no GI symptoms. Promotions Assistant Sales Marketing from [facility] called and asked if I would evaluate him for possible thoracoscopy as we do not have a diagnosis, but his CT scan is concerning for malignancy. There was also a very important point about this patient's bleeding. His hemoglobin had dropped 10 grams from 2 years ago. He is a heavy smoker and hemoglobin normally runs about 16. He was down to 5.8 at [facility]. He had bloody drainage when they put the pigtail catheter in, but removed it. He was only 6.8 yesterday morning and had come down to 6.7 after 3 units. I am quite concerned about the bleeding as he had no evidence that he was bleeding from his GI tract and he did not have hemoptysis or hematuria. FINDINGS: I took the patient to the operating room on 12/07/2019 after a long discussion with him the night before. Upon going in, it could be seen that he had a very thickened pleura. We got in and took this down and developed a significant amount of bleeding. He was bleeding from the parietal pleural surface. I then did a biopsy with forceps from the pleural surface. Unfortunately, he bled profusely. We lost at least a liter of blood. He just bled from the pleural surface. This came back as a carcinoma. 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 Unfortunately, he bled profusely. Using an Aquamantys, I went through the same incision, which would be in the incision if he did require radical pleural pneumonectomy. I really could not see well enough. In addition, in taking this off of the chest wall, we had a parenchymal tear which was small, but leaking air. For this reason, I put a 5 mm port posteriorly to the scapula again in the incision if he would require a thoracotomy with a radical pleural pneumonectomy. I was able to see then and we stapled across this. Unfortunately, even using cautery and multiple adjuncts, the patient bled profusely. I could not really get the tumor on the chest wall to stop bleeding, so I had to do a limited pleurectomy down to the diaphragmatic gutter and also along the diaphragm until we got down to more normal tissue. I then cauterized this extensively using the Aquamantys and we finally got good hemostasis. I also used Fibrillar into the costophrenic angle to stop this from bleeding and we used thrombin spray. I also put Progel over the area we had repaired. He actually tolerated it well, although again until we got the bleeding controlled from his chest wall, it was difficult. He was greatly improved by the conclusion of the case. In order not to make any more incisions so that it would facilitate a possible radical pleura pneumonectomy, I put a PleurX catheter through the original pigtail catheter site, which had been placed at [facility]. In addition, I put our chest tube into the anterior thoracostomy site and sutured it in place after closing the muscle underneath. We closed our posterior incision of course. The patient tolerated it well hemodynamically. DESCRIPTION OF PROCEDURE: The patient was brought to the operating room, laid in supine position. General anesthesia was induced and endotracheal intubation performed with single lumen tube. The patient was placed in right lateral decubitus position. The left chest was prepped and draped in usual sterile fashion. After appropriate timeout had been called and prophylactic antibiotics given, an incision was made along where the incision would be for a thoracotomy for a radical pleura pneumonectomy. I did not want to make any extra incisions if possible in order to leave this option open in this young man. I then made a small 5 mm incision to allow for a 5 mm port to be placed. We did inject this with Exparel. Upon entering the pleural cavity, it was quite a mess as would be expected. It appeared to be old clot and there was a significant amount of bloody fluid. We suctioned this off and sent it for cytology and for bacteriologic studies. We were finally able to get in enough where we could insufflate CO2. Upon going through the same incision, I went beside the 5 mm port after I enlarged the port site a bit with a 5 mm biopsy forceps and I was able to push away the lung; however, it was quite attached medially. Upon making space, so we could get to the biopsy, the left upper lobe tore bit and there was some bleeding from this. We held pressure on this and it stopped, but he had a bit of an air leak which we repaired later. For the time being, I did a biopsy of the parietal pleura and sent it off for frozen; however, it still was not clear to me that we were dealing with a malignancy versus an empyema or just a hemothorax. Upon going in further removing more bloody fluid, the pleural surface itself not only did look abnormal, but it bled profusely just from bluntly pushing the lung and the pleural contents, which were a bit of fibrinous away from the wall. This bled profusely. I then removed a larger portion of the pleura and upon removing this, we got down to more normal-appearing chest wall and I was able to cauterize this with an Aquamantys. Unfortunately, the wall itself bled profusely. This went all the way down to the diaphragm and along the lung itself. We bled quite a bit. The patient's hemoglobin was 8.7 when we started and I asked that a unit be given. We ended up giving 2 units during the case, even though hemodynamically he was stable. I enlarged the incision to about 4 cm and I was able to do one port operation; however, I simply could not see this air leak well enough. For this reason, I put a 5 mm port again in the area of our thoracotomy incision should we proceed with that in the future. This was grasped with a 5 mm clamp and I ended up firing the stapler x2. This greatly controlled the bleeding and there was only a pinpoint opening. Unfortunately, the chest wall itself bled profusely. I ended up doing a partial pleurectomy coming down from about the tip of the scapula all the way to the diaphragmatic gutter. I kept trying to cauterize the tumor, but it continued to bleed. Frozen section came back as a probable mesothelioma versus an adenocarcinoma; we will have to have immunohistochemical stains to say for sure. Using a long cautery tip as well as the Aquamantys, even though I cauterized this extensively, it was very difficult to get the tumor to stop bleeding. For this reason, I took this pleurectomy all the way down to the costophrenic angle from about the tip of the scapula. I did not go up to the apex. I then took a bit more off of the diaphragm and we were able to get the bleeding much better controlled once we had done this. Using the Aquamantys meticulously, I cauterized almost the entire surface of the pleura in the area we had operated to get the bleeding controlled. Fibrillar was then placed in the costophrenic angle where there was still tumor, but this controlled it nicely. I also sprayed the entire surface with thrombin. The area of the small air leak was controlled with Progel spray. I then used the PleurX catheter, put into the posterior and the inferior aspect of the pleural cavity, but I put it through the original pigtail incision which was a bit anterior and superior to our incision. We then put a chest tube through the medial aspect of our incision, but we did tunnel it up above into the higher interspace after we closed the muscle wall. This was directed laterally and superiorly. This was required for the air leak. This was held in place with heavy silk suture. The PleurX was held in place with 2-0 silk suture. A 4-0 Monocryl was used in running subcuticular fashion to close the 2 incisions. The patient tolerated it well hemodynamically. We had at least a liter of blood loss, however. It was significant. This had been controlled quite nicely by the conclusion of the case. I attest to the content of the Intraoperative Record and any orders documented therein. Any exceptions are noted below. JOSED
[2019-12-07] MEDS: dilTIAZem HCL 180 MG CAPCR PO SCH (12:58)
[2019-12-07] MEDS: METOPROLOL TARTRATE 100 MG TAB PO SCH ×2 (12:59→21:03)
--- NOTE | 2019-12-07 13:51 | Hospitalist Progress Note ---
Date of Service December 07, 2019 Assessment & Plan (1) Pleural effusion: -Patient was initially seen at [facility] on 11/16/2019 for Shortness of breath and was discharged from the ED for what was thought to be COPD exacerbation. Patient returned to [facility] on 11/27/2019 with Shortness of breath was found to have complicated pleural effusion that required pigtail catheter during the hospitalization. -after 10 days of hospitalization at [facility] and he was transferred to [facility] on 12/06/2019 for further evaluation by Cardiothoracic surgery service, Dr. Toro, and to rule out malignancy -Patient also with anemia Hgb 6.9 and was given 2 units of PRBC on 12/06/2019 -Cardiothoracic surgery service brought patient down to the operating room on 12/07/2019 -follow post-procedure specimens with pathology -post-procedure CXR on 12/07/2019 1. Loculated left pleural effusion has decreased in size from comparison status post placement of two left basilar chest tubes. 2. Previously questioned left apical pneumothorax is not visualized on today's study. 3. Trace right pleural effusion. 4. Cardiomegaly with pulmonary vascular congestion and persistent left lung opacities. (2) Anemia: - Initial Hgb: 8.9 on 11/27/2019 at [facility], down trended to 5.8 on 12/06/2019. Patient received [facility] PRBC blood transfusions. Pt was seen by heme/onc at [facility] concerned for possible malignancy. -12/05/2019 [facility] labs: Iron: 9 (reference 45-176), Iron Bindin ([id number]), Ferritin: 1379 (reference 30-400) - 12/06/2019 [facility] labs: folate: 8.4 (>4.5), B12: 488 ([id number]) -Patient with anemia and presented to [facility] on 12/06/2019 with Hgb 6.9 and was given 2 units of PRBC on 12/06/2019 -Hgb is 8.7 in AM of 12/07/2019 -trend CBC (3) Tachycardia: -noted to have tachycardia at [facility] for which his home dose beta blockers was modified and he also had calcium channel meet -sinus tachycardia -on metoprolol, ditiazem -will see if after CT surgery procedure that this would change the heart rates -pain medications prn after CT surgery procedure -trend CBC (4) HTN (hypertension): History of hypertension -holding home dose amlodipine and holding home dose CAROL inhibitor to avoid hypotension (5) Hyponatremia: Initial Na: 107 on 11/27/2019, treated with hypertonic saline at [facility] under direction of nephrology with repeat sodium of 128 on 12/06/2019. Suspecting underlying malignancy Current Na: 124 Monitor BMP Consider nephrology consult if worsening. Anticipate pt needing outpatient follow up (6) Alcohol use: -as per history, patient drinks 3 to 4 alcoholic drinks a day -Last alcoholic drink 11/26/2019. -alcohol use can contribute to hyponatremia -alcohol cessation encouraged (7) Tobacco use: -Denies nicotine patch as outpatient -Encourage smoking cessation DVT Prophylaxis -SCDs Full Code Admission and Anticipated Discharge Date Admission Date: December 06, 2019 Subjective Patient returns from operating room. He has left sided chest tube draining into Pleurx catheter. Breathing without acute distress. mild tachycardia. denies chest pain or palpitations. no abdomen pain. no nausea. no vomiting. Review of Systems Review of Systems: All systems reviewed & are unremarkable except as noted in Subjective Physical Exam Constitutional: comfortable Eyes: PERRL, conjunctivae normal, anicteric sclerae EOM intact bilaterally ENMT: external ear and nose normal, oropharynx normal Neck: normal visual inspection Respiratory: normal respiratory effort Auscultation: + crackles Cardiovascular: Rate/Rhythm: regular rhythm and + tachycardic Gastrointestinal (Abdomen): normal bowel sounds, soft, nontender, no hepatosplenomegaly Neurologic: PERRL, EOMI, accommodation nl, no face palsy, no dysarthria CN's II-XI intact bilaterally Psychiatric: A+Ox3, euthymic affect Results & Data Results & Data ([facility]) Vital Signs (Past 12 Hours) Vital Signs Temp Pulse Pulse Pulse Resp BP BP 12/07/19 12:42 36.6 C 106 H 22 98/64 L 12/07/19 12:30 112 H 14 12/07/19 12:15 36.4 C L 99 H 16 12/07/19 12:05 98 H 20 12/07/19 11:55 36.2 C L 89 18 12/07/19 07:00 105 H 12/07/19 06:58 36.9 C 111 H 25 H 115/92 12/07/19 06:42 36.4 C L 117 H 19 118/73 12/07/19 03:31 37.2 C 98 H 17 12/07/19 02:27 37.1 C 98 H 18 111/74 12/07/19 02:03 37.1 C 95 H 18 115/73 BP Pulse Ox Pulse Ox 12/07/19 12:42 94 94 12/07/19 12:30 103/66 93 12/07/19 12:15 92/56 L 93 12/07/19 12:05 91/60 L 99 12/07/19 11:55 92/60 L 100 12/07/19 07:00 12/07/19 06:58 100 12/07/19 06:42 95 12/07/19 03:31 99/60 L 96 12/07/19 02:27 95 12/07/19 02:03 97
[2019-12-07] MEDS: ACETAMINOPHEN 1,000 MG/100 ML VIAL IV SCH (15:42)
[2019-12-07 16:07] LABS: Hematocrit (blood only) 26.9 % (42-52); Hemoglobin 9.3 g/dL (14.0-18.0)
[2019-12-07] MEDS: DOCUSATE SODIUM 100 MG CAP PO SCH (21:03)
[2019-12-07] MEDS: METOCLOPRAMIDE HCL INJ 5 MG/ML 2 ML VIAL IV SCH (21:48)
[2019-12-08] MEDS: ACETAMINOPHEN 1,000 MG/100 ML VIAL IV SCH (00:32)
[2019-12-08] MEDS: METOCLOPRAMIDE HCL INJ 5 MG/ML 2 ML VIAL IV SCH (05:26)
[2019-12-08 05:57] LABS: Basophils # (auto) 0.01 K/uL (0-0.2); Hematocrit (blood only) 23.8 % (42-52); Hemoglobin 8.3 g/dL (14.0-18.0); Immature Granulocytes # (auto) 0.09 K/uL (0.00-0.02); Immature Granulocytes % (auto) 0.4 %; Lymphocytes # (auto) 1.42 K/uL (1.2-3.4); Lymphocytes % (auto) 6.3 %; Mean Corpuscular Hemoglobin 31.2 pg (25-34); Mean Corpuscular Volume 89.5 fL (80-100); Mean Platelet Volume 8.8 fL (7.4-10.4); Monocytes # (auto) 1.97 K/uL (0.11-0.59); Monocytes % (auto) 8.7 %; Neutrophils # (auto) 19.05 K/uL (1.4-6.5); Neutrophils % (auto) 84.6 %; Platelet Count 373 K/uL (130-400); RDW Coefficient of Variation 15.2 % (11.5-14.5); RDW Standard Deviation 49.7 fL (36.4-46.3); Red Blood Count 2.66 M/uL (4.7-6.1); White Blood Count 22.54 K/uL (4.8-10.8)
[2019-12-08 06:04] LABS: Mean Corpuscular Hgb Conc 34.9 g/dL (32-36)
[2019-12-08 06:13] LABS: BUN Creatinine Ratio 25.5 (10-20); Calcium 8.4 mg/dl (8.5-10.1); Creatinine Clr Calc Pharmacy 157.3 ml/min; Est GFR (African American) 136.9; Est GFR (Non-African American) 118.1; Potassium 3.8 mmol/L (3.5-5.1)
--- NOTE | 2019-12-08 08:10 | XRay Report ---
SINGLE VIEW CHEST CLINICAL HISTORY: Pleural effusion. FINDINGS: An AP, portable, upright chest radiograph is compared to study dated 12/07/2019. Correlation is made with chest CT dated 12/03/2019. The examination is degraded by portable technique and patient rotation. The cardiomediastinal silhouette is unremarkable. Emphysematous change is noted. 2 left b asilar chest tubes are in place. The residual left pleural effusion is unchanged from yesterday with associated left basilar consolidation. Loculated fluid is again seen at the left apex. There is a sma ll right pleural effusion with associated atelectasis. No definite pneumothorax is seen. The bony tho rax is grossly intact. Subcutaneous emphysema is noted in the left lower chest wall. IMPRESSION: 1. Emphysema. 2. Again seen is a left pleural effusion with 2 left-sided chest tubes in place. This has not appreci ably changed from yesterday. 3. Consolidation is again seen throughout the left lower lung, with loculated fluid at the left apex. 4. There is a small right pleural effusion. 5. No pneumothorax is clearly identified. ACT 112: Negative or not required by law. Electronically signed by: Desean Hull M.D. 12/08/2019 8:09 AM
[2019-12-08] MEDS: dilTIAZem HCL 180 MG CAPCR PO SCH (08:16)
[2019-12-08] MEDS: DOCUSATE SODIUM 100 MG CAP PO SCH ×2 (08:16→19:55)
[2019-12-08] MEDS: METOPROLOL TARTRATE 100 MG TAB PO SCH ×2 (08:17→19:55)
[2019-12-08] MEDS ORDERED: SODIUM CHLORIDE 0.9% 1000ML 500 ML IV ONE (08:58)
[2019-12-08] MEDS ORDERED: SODIUM CHLORIDE 0.9% 1000ML 1,000 ML IV SCH (09:00)
[2019-12-08] MEDS ORDERED: ACETAMINOPHEN 325 MG TAB PO STA (09:00)
[2019-12-08] MEDS ORDERED: ONDANSETRON INJ 2 MG/ML 2 ML VIAL IV PRN (09:02)
[2019-12-08] MEDS ORDERED: HYDROmorphone INJ 0.5 MG/0.5 ML SYR IV PRN (09:02)
--- NOTE | 2019-12-08 09:14 | Hospitalist Progress Note ---
Date of Service December 08, 2019 Assessment & Plan (1) Pleural effusion: status post lung biopsy status post chest tube placement -Patient was initially seen at [facility] on 11/16/2019 for Shortness of breath and was discharged from the ED for what was thought to be COPD exacerbation. Patient returned to [facility] on 11/27/2019 with Shortness of breath was found to have complicated pleural effusion that required pigtail catheter during the hospitalization. -after 10 days of hospitalization at [facility] and he was transferred to [facility] on 12/06/2019 for further evaluation by Cardiothoracic surgery service, Dr. Toro, and to rule out malignancy -Patient also with anemia Hgb 6.9 and was given 2 units of PRBC on 12/06/2019 -Cardiothoracic surgery service brought patient down to the operating room on 12/07/[address]. patient's CT surgery report of Left thoracoscopy with partial pleurectomy and biopsy AND wedge biopsy of left upper lobe -the report by Dr. Toro that patient had hemorrhage during the procedure and estimates at least a liter of blood loss and the patient given 2 units of PRBC during the procedure -post-procedure CXR on 12/07/2019 1. Loculated left pleural effusion has decreased in size from comparison status post placement of two left basilar chest tubes. 2. Previously questioned left apical pneumothorax is not visualized on today's study. 3. Trace right pleural effusion. 4. Cardiomegaly with pulmonary vascular congestion and persistent left lung opacities. -follow post-procedure specimens with pathology, continue management of cather and Pleurx draining as per Cardiothoracic surgery team (2) Anemia: Anemia with acute blood loss anemia - Initial Hgb: 8.9 on 11/27/2019 at [facility], down trended to 5.8 on 12/06/2019. Patient received [facility] PRBC blood transfusions. Pt was seen by heme/onc at [facility] concerned for possible malignancy. -12/05/2019 [facility] labs: Iron: 9 (reference 45-176), Iron Bindin ([id number]), Ferritin: 1379 (reference 30-400) - 12/06/2019 [facility] labs: folate: 8.4 (>4.5), B12: 488 ([id number]) -Patient with anemia and presented to [facility] on 12/06/2019 with Hgb 6.9 and was given 2 units of PRBC on 12/06/2019. Hgb is 8.7 in AM of 12/07/2019. then on 12/07/2019, patient had Left thoracoscopy with partial pleurectomy and biopsy AND wedge biopsy of left upper lobe; the report by Dr. Toro that patient had hemorrhage during the procedure and estimates at least a liter of blood loss and the patient given 2 units of PRBC during the procedure -12/08/2019 Hgb is 8.3. V fluid bolus and maintenance fluid to be given and patient already received beta meet and calcium channel meet for scheduled morning medications, check noon time CBC to see if any contribution of anemia to tachycardia -trend CBC (3) Tachycardia: -noted to have tachycardia at [facility] for which his home dose beta blockers was modified and he also had calcium channel meet -sinus tachycardia -on metoprolol, ditiazem -pain medications prn after CT surgery procedure -management of IV fluids and anemia as above (4) HTN (hypertension): History of hypertension -holding home dose amlodipine and holding home dose CAROL inhibitor to avoid hypotension (5) Hyponatremia: -Initial Na: 107 on 11/27/2019, treated with hypertonic saline at [facility] under direction of nephrology with repeat sodium of 128 on 12/06/2019 and suspecting to be from underlying malignancy -current serum sodium on 12/08/2019 is 129 (6) Alcohol use: -as per history, patient drinks 3 to 4 alcoholic drinks a day -Last alcoholic drink 11/26/2019. -alcohol use can contribute to hyponatremia -alcohol cessation encouraged (7) Tobacco use: -Denies nicotine patch as outpatient -Encourage smoking cessation DVT Prophylaxis -SCDs Full Code Admission and Anticipated Discharge Date Admission Date: December 06, 2019 Subjective Patient on nasal cannula oxygen. he does not feel acutely short of breath. telemetry and physical exam of tachycardia. patient denies palpitations or chest pain. no vomiting. Chest tube remains in place. patient reports he was able to ambulate from bed to short distance to bathroom. 12/08/2019 Hgb is 8.3 IV fluid bolus and maintenance fluid to be given and patient already received beta meet and calcium channel meet for scheduled morning medications, check noon time CBC to see if any contribution of anemia to tachycardia Review of Systems Review of Systems: All systems reviewed & are unremarkable except as noted in Subjective Physical Exam Constitutional: comfortable Eyes: PERRL, conjunctivae normal, anicteric sclerae EOM intact bilaterally ENMT: external ear and nose normal, oropharynx normal Neck: normal visual inspection Respiratory: normal respiratory effort Auscultation: + crackles Cardiovascular: Rate/Rhythm: regular rhythm and + tachycardic chest tube and Pleurx catheter Gastrointestinal (Abdomen): normal bowel sounds, soft, nontender, no hepatosplenomegaly Musculoskeletal: Head/Neck/Chest: normocephalic Neurologic: PERRL, EOMI, accommodation nl, no face palsy, no dysarthria CN's II-XI intact bilaterally Psychiatric: A+Ox3, euthymic affect Results & Data Results & Data ([facility]) Vital Signs (Past 12 Hours) Vital Signs Temp Pulse Pulse Resp BP BP Pulse Ox 12/08/19 08:55 116 H 12/08/19 08:00 12/08/19 07:12 36.5 C 114 H 19 120/77 97 12/08/19 04:13 36.7 C 103 H 18 114/74 97 12/08/19 04:00 12/08/19 00:00 112 H 12/07/19 23:35 36.7 C 106 H 18 108/78 98 12/07/19 21:42 36.6 C 87 99/65 L 100 Pulse Ox 12/08/19 08:55 12/08/19 08:00 97 12/08/19 07:12 12/08/19 04:13 12/08/19 04:00 97 12/08/19 00:00 98 12/07/19 23:35 12/07/19 21:42 100
[2019-12-08] MEDS ORDERED: CALCIUM CARBONATE 500 MG CHEWABLE TAB PO ONE (09:30)
--- NOTE | 2019-12-08 09:30 | Anesthesiology Progress Note ---
Date of Service December 08, 2019 Anesthesia Post Procedure Vital Signs Vital Signs: Temp Pulse Pulse Resp BP BP Pulse Ox 12/08/19 08:55 116 H 12/08/19 08:00 12/08/19 07:12 36.5 C 114 H 19 120/77 97 12/08/19 04:13 36.7 C 103 H 18 114/74 97 12/08/19 04:00 12/08/19 00:00 112 H 12/07/19 23:35 36.7 C 106 H 18 108/78 98 12/07/19 21:42 36.6 C 87 99/65 L 100 12/07/19 19:42 36.8 C 103 H 17 130/84 98 12/07/19 17:42 37.1 C 103 H 20 124/66 97 12/07/19 15:42 36.4 C L 99 H 14 99/70 L 98 12/07/19 15:21 36.4 C L 108 H 17 117/68 96 12/07/19 15:00 113 H 12/07/19 14:42 12/07/19 14:00 108 H 12/07/19 13:42 36.8 C 108 H 20 116/75 98 12/07/19 12:42 36.6 C 108 H 106 H 22 98/64 L 94 12/07/19 12:30 112 H 14 103/66 93 12/07/19 12:15 36.4 C L 99 H 16 92/56 L 93 12/07/19 12:05 98 H 20 91/60 L 99 12/07/19 11:55 36.2 C L 89 18 92/60 L 100 Pulse Ox 12/08/19 08:55 12/08/19 08:00 97 12/08/19 07:12 12/08/19 04:13 12/08/19 04:00 97 12/08/19 00:00 98 12/07/19 23:35 12/07/19 21:42 100 12/07/19 19:42 98 12/07/19 17:42 97 12/07/19 15:42 98 12/07/19 15:21 12/07/19 15:00 12/07/19 14:42 97 12/07/19 14:00 12/07/19 13:42 98 12/07/19 12:42 94 12/07/19 12:30 12/07/19 12:15 12/07/19 12:05 12/07/19 11:55 Pain Intensity Left Chest: Pain Intensity: 3 Notes Mental Status: alert / awake / arousable Patient Amnestic to Procedure: Yes Nausea / Vomiting: adequately controlled Pain: adequately controlled Airway Patency, RR, SpO2: stable & adequate BP & HR: stable & adequate Hydration State: stable & adequate Anesthetic Complications: no major complications apparent and Pt Satisfied with anesthetic care
[2019-12-08 11:27] LABS: Magnesium 1.8 mg/dl (1.8-2.4)
[2019-12-08] MEDS ORDERED: SODIUM CHLORIDE 0.9% 250 ML IV PRN (11:27)
--- NOTE | 2019-12-08 12:07 | Progress Notes ---
DATE: 12/08/2019 Mr. Munoz was seen today. He looks very good. He is on room air. He is tachycardic, although his rate is down a little bit. I have discussed his case with Dr. Lovett. I would like to see this patient ambulate more. I will probably remove his chest tube in the morning. His x-ray is about the same, but we will check another one tomorrow. Hemoglobin is relatively stable. He was 6.8 two days ago and received 2 units of blood. We then took him to the operating room and lost about a liter of blood and I gave him 2 more units and he is now 8.3, which is pretty good really. I am going to give him another unit of blood as he is still mildly tachycardic. I am also going to give him some Lasix to diurese and supplement his magnesium. His kidney function looks good. He sounds a bit better to me. I was quite pleased with his x-ray. ASSESSMENT AND PLAN: Postop day #1, status post partial pleurectomy for probable mesothelioma. Final pathology will be out probably Tuesday or Tuesday. I hope to have his chest tube out tomorrow and perhaps looking at discharge on Tuesday.
[2019-12-08] MEDS: MAGNESIUM SULFATE / D5W 1 GM/100 ML BAG IV SCH ×2 (12:30→13:32)
[2019-12-08] MEDS ORDERED: FUROSEMIDE 20 MG in SYRINGE 0 ML IV ONE (14:00)
[2019-12-08 17:43] LABS: Basophils # (auto) 0.02 K/uL (0-0.2); Basophils % (auto) 0.1 %; Eosinophils # (auto) 0.03 K/uL (0-0.5); Eosinophils % (auto) 0.1 %; Hemoglobin 9.6 g/dL (14.0-18.0); Immature Granulocytes # (auto) 0.11 K/uL (0.00-0.02); Immature Granulocytes % (auto) 0.5 %; Lymphocytes # (auto) 1.65 K/uL (1.2-3.4); Mean Corpuscular Hemoglobin 30.8 pg (25-34); Mean Corpuscular Hgb Conc 34.3 g/dL (32-36); Mean Corpuscular Volume 89.7 fL (80-100); Mean Platelet Volume 9.3 fL (7.4-10.4); Monocytes # (auto) 1.96 K/uL (0.11-0.59); Monocytes % (auto) 8.3 %; Neutrophils # (auto) 19.78 K/uL (1.4-6.5); Platelet Count 381 K/uL (130-400); RDW Coefficient of Variation 14.8 % (11.5-14.5); RDW Standard Deviation 48.4 fL (36.4-46.3); Red Blood Count 3.12 M/uL (4.7-6.1); White Blood Count 23.55 K/uL (4.8-10.8)
[2019-12-08] MEDS: ACETAMINOPHEN 325 MG TAB PO PRN (17:48)
[2019-12-08] MEDS: CALCIUM CARBONATE 500 MG CHEWABLE TAB PO PRN (19:55)
[2019-12-08] MEDS: OXYCODONE HCL IR 5 MG TAB (IMMEDIATE RELEASE) PO PRN (21:59)
[2019-12-09] MEDS: OXYCODONE HCL IR 5 MG TAB (IMMEDIATE RELEASE) PO PRN ×3 (04:40→23:09)
[2019-12-09 07:42] LABS: Hematocrit (blood only) 26.6 % (42-52); Hemoglobin 8.9 g/dL (14.0-18.0); Mean Corpuscular Hemoglobin 30.4 pg (25-34); Mean Corpuscular Hgb Conc 33.5 g/dL (32-36); Mean Corpuscular Volume 90.8 fL (80-100); Mean Platelet Volume 9.2 fL (7.4-10.4); Platelet Count 388 K/uL (130-400); RDW Standard Deviation 49.5 fL (36.4-46.3); Red Blood Count 2.93 M/uL (4.7-6.1); White Blood Count 19.77 K/uL (4.8-10.8)
[2019-12-09] MEDS: dilTIAZem HCL 240 MG CAPCR PO SCH (08:00)
[2019-12-09] MEDS: DOCUSATE SODIUM 100 MG CAP PO SCH ×2 (08:00→21:35)
[2019-12-09] MEDS: METOPROLOL TARTRATE 100 MG TAB PO SCH ×2 (08:00→21:35)
[2019-12-09 08:12] LABS: Albumin Level 1.2 gm/dl (3.4-5.0); BUN Creatinine Ratio 23.7 (10-20); Calcium 8.5 mg/dl (8.5-10.1); Creatinine Clr Calc Pharmacy 176.4 ml/min; Est GFR (African American) 143.4; Est GFR (Non-African American) 123.7; Magnesium 1.8 mg/dl (1.8-2.4); Potassium 3.5 mmol/L (3.5-5.1)
[2019-12-09 08:15] LABS: Albumin Globulin Ratio 0.3 (0.9-2); Bilirubin,Total 0.4 mg/dl (0.2-1); Globulin 4.2 gm/dl (2.5-4.0); Total Protein 5.4 gm/dl (6.4-8.2)
--- NOTE | 2019-12-09 08:19 | Hospitalist Progress Note ---
Date of Service December 09, 2019 Assessment & Plan (1) Pleural effusion: status post lung biopsy status post chest tube placement -Patient was initially seen at [facility] on 11/16/2019 for Shortness of breath and was discharged from the ED for what was thought to be COPD exacerbation. Patient returned to [facility] on 11/27/2019 with Shortness of breath was found to have complicated pleural effusion that required pigtail catheter during the hospitalization. -after 10 days of hospitalization at [facility] and he was transferred to [facility] on 12/06/2019 for further evaluation by Cardiothoracic surgery service, Dr. Toro, and to rule out malignancy -Patient also with anemia Hgb 6.9 and was given 2 units of PRBC on 12/06/2019 -Cardiothoracic surgery service brought patient down to the operating room on 12/07/2019. patient's CT surgery report of Left thoracoscopy with partial pleurectomy and biopsy AND wedge biopsy of left upper lobe -the report by Dr. Toro that patient had hemorrhage during the procedure and estimates at least a liter of blood loss and the patient given 2 units of PRBC during the procedure -post-procedure CXR on 12/07/2019 1. Loculated left pleural effusion has decreased in size from comparison status post placement of two left basilar chest tubes. 2. Previously questioned left apical pneumothorax is not visualized on today's study. 3. Trace right pleural effusion. 4. Cardiomegaly with pulmonary vascular congestion and persistent left lung opacities. -follow post-procedure specimens with pathology, continue management of cather and Pleurx draining as per Cardiothoracic surgery team (2) Anemia: Anemia with acute blood loss anemia - Initial Hgb: 8.9 on 11/27/2019 at [facility], down trended to 5.8 on 12/06/2019. Patient received [facility] PRBC blood transfusions. Pt was seen by heme/onc at [facility] concerned for possible malignancy. -12/05/2019 [facility] labs: Iron: 9 (reference 45-176), Iron Bindin ([id number]), Ferritin: 1379 (reference 30-400) - 12/06/2019 [facility] labs: folate: 8.4 (>4.5), B12: 488 (232-1245) -Patient with anemia and presented to [facility] on 12/06/2019 with Hgb 6.9 and was given 2 units of PRBC on 12/06/2019. Hgb is 8.7 in AM of 12/07/2019. then on 12/07/2019, patient had Left thoracoscopy with partial pleurectomy and biopsy AND wedge biopsy of left upper lobe; the report by Dr. oTro that patient had hemorrhage during the procedure and estimates at least a liter of blood loss and the patient given 2 units of PRBC during the procedure -Dr. Levy from CT surgery also transfused 1 PRBC on 12/08/2019 -Hgb is 8.9 on 12/09/2019 (3) Tachycardia: -noted to have tachycardia at [facility] for which his home dose beta blockers was modified and he also had calcium channel meet -sinus tachycardia -12/09/2019: overall, patient's heart rates have improved since blood transfusion on 12/08/[address] Toro. However still tachycardia on telemetry and on physical exam -on metoprolol 100 mg BID, ditiazem to be increased from 180 mg daily to 240 mg daily starting on 12/09/2019 -prn pain medications (4) HTN (hypertension): History of hypertension -holding home dose amlodipine and holding home dose CAROL inhibitor to avoid hypotension. patient likely will have amlodipine and CAROL inhibitor stopped on discharge medication list (5) Hyponatremia: -Initial Na: 107 on 11/27/2019, treated with hypertonic saline at [facility] under direction of nephrology with repeat sodium of 128 on 12/06/2019 and suspecting to be from underlying malignancy -current serum sodium on 12/09/2019 is 128 (6) Alcohol use: -as per history, patient drinks 3 to 4 alcoholic drinks a day -Last alcoholic drink 11/26/2019. -alcohol use can contribute to hyponatremia -alcohol cessation encouraged (7) Tobacco use: -Denies nicotine patch as outpatient -Encourage smoking cessation DVT Prophylaxis -SCDs Full Code Admission and Anticipated Discharge Date Admission Date: December 06, 2019 Subjective Overall, patient's heart rates have improved since blood transfusion on as ordered by Dr. Toro. However still tachycardia on telemetry and on physical exam. Patient denies acute shortness of breath recently and no sternal chest pain. He does feel some discomforts near chest tube placement area but not in acute distress. no other symptoms reported by the patient. Review of Systems Review of Systems: All systems reviewed & are unremarkable except as noted in Subjective Physical Exam Constitutional: comfortable Eyes: PERRL, conjunctivae normal, anicteric sclerae EOM intact bilaterally ENMT: external ear and nose normal, oropharynx normal Neck: normal visual inspection Respiratory: normal respiratory effort Cardiovascular: Rate/Rhythm: regular rhythm and + tachycardic Chest (Breasts): Additional Comments: chest tube in place Gastrointestinal (Abdomen): normal bowel sounds, soft, nontender, no hepatosplenomegaly Musculoskeletal: Head/Neck/Chest: normocephalic Neurologic: PERRL, EOMI, accommodation nl, no face palsy, no dysarthria CN's II-XI intact bilaterally Psychiatric: A+Ox3, euthymic affect Results & Data Results & Data ([facility]) Vital Signs (Past 12 Hours) Vital Signs Temp Pulse Pulse Resp BP Pulse Ox 12/09/19 07:56 37.5 C 111 H 20 122/68 92 12/09/19 07:07 130 H 12/09/19 04:00 36.6 C 125 H 18 105/65 91 12/08/19 23:45 36.8 C 98 H 18 103/68 91
[2019-12-09 08:22] LABS: Basophils # (auto) 0.04 K/uL (0-0.2); Basophils % (auto) 0.2 %; Eosinophils # (auto) 0.04 K/uL (0-0.5); Eosinophils % (auto) 0.2 %; Immature Granulocytes % (auto) 0.5 %; Lymphocytes % (auto) 6.1 %; Monocytes # (auto) 2.37 K/uL (0.11-0.59); Neutrophils # (auto) 16.02 K/uL (1.4-6.5)
--- NOTE | 2019-12-09 09:02 | XRay Report ---
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 There are two chest tubes again noted projecting over the left lung. The more superior chest tube appears to be positioned somewhat superiorly from comparison. Loculated left pleural effusion with multifocal mixed interstitial and alveolar opacities throughout the left lung redemonstrated. Small right pleural effusion with right lung base opacities suggestive of atelectasis. No pneumothorax. Degenerative changes of the spine. IMPRESSION: 1. Two left-sided chest tubes are redemonstrated without pneumothorax identified. 2. Loculated left pleural effusion with multifocal left lung opacities, stable to slightly progressed from comparison. 3. Small right pleural effusion with right lung base atelectasis. ACT 112: Negative or not required by law. The above report was generated using voice recognition software. It may contain grammatical, syntax o r spelling errors. Electronically signed by: Kapil Brown M.D. 12/09/2019 9:01 AM
[2019-12-09] MEDS: ACETAMINOPHEN 325 MG TAB PO PRN ×2 (09:16→17:45)
[2019-12-09] MEDS: CALCIUM CARBONATE 500 MG CHEWABLE TAB PO PRN (10:07)
--- NOTE | 2019-12-09 11:33 | XRay Report ---
XR chest 1V portable HISTORY: 54 years-old Male chest tube removal status post removal of left-sided chest tube COMPARISON: Chest radiograph since same day at 8:36 AM TECHNIQUE: Portable AP view the chest FINDINGS: Unchanged enlargement of the cardiac silhouette. Status post removal of the 2 left-sided chest tubes. Loculated left pleural effusion appears unchanged. Tiny lucencies of the left lung base are noted lobato ggestive of aerated lung without large pneumothorax. Mildly improved aeration of the left lung with p ersistent mixed interstitial and alveolar opacities with volume loss. Small right pleural effusion wi th right lung base atelectasis. Degenerative changes of the shoulders and spine. Mild subcutaneous em physema of the lateral left chest wall. IMPRESSION: 1. Status post removal of the two left-sided chest tubes. No definite pneumothorax identified. 2. Mildly improved aeration of the left lung. 3. Small right pleural effusion. ACT 112: Negative or not required by law. The above report was generated using voice recognition software. It may contain grammatical, syntax o r spelling errors. Electronically signed by: Kapil Brown M.D. 12/09/2019 11:31 AM
--- NOTE | 2019-12-09 11:58 | Progress Notes ---
DATE: 12/09/2019 The patient was seen today. He looks very good. He has been ambulating in the hallway. He can go, ambulate independently from my standpoint. He put out very little fluid and his x-ray is unchanged. It is abnormal, but this is due to his neoplastic process. He is on room air with good saturations. He remains tachycardic. I removed his chest tubes and the sites are clean. His x-ray looked good afterwards and was unchanged. These dressing will have to stay on for about 3 days. From my standpoint, this patient may be discharged when he is deemed medically fit.
[2019-12-09] MEDS: MAGNESIUM OXIDE 400 MG TAB PO SCH (15:30)
[2019-12-09] MEDS ORDERED: MAGNESIUM SULFATE / D5W 1 GM/100 ML BAG IV ONE (15:30)
[2019-12-10] MEDS: ACETAMINOPHEN 325 MG TAB PO PRN ×2 (05:27→13:11)
[2019-12-10 07:06] LABS: Hematocrit (blood only) 25.3 % (42-52); Hemoglobin 8.5 g/dL (14.0-18.0); Mean Corpuscular Hemoglobin 30.6 pg (25-34); Mean Corpuscular Hgb Conc 33.6 g/dL (32-36); Mean Platelet Volume 9.1 fL (7.4-10.4); Platelet Count 430 K/uL (130-400); RDW Coefficient of Variation 14.9 % (11.5-14.5); Red Blood Count 2.78 M/uL (4.7-6.1); White Blood Count 19.25 K/uL (4.8-10.8)
--- NOTE | 2019-12-10 07:22 | XRay Report ---
XR chest 1V portable CLINICAL HISTORY: mesothelioma COMPARISON STUDY: 12/09/2019 FINDINGS: No significant change compared to the prior study. Similar increased density left lung base . No significant postprocedural pneumothorax. Several small microair blebs left lung base. Unchanged pleural thickening left pulmonary apex. Slight chronic blunting right lateral costophrenic angle. IMPRESSION: No significant change compared to the prior study. Unchanged postoperative changes left hemithorax no evidence for postprocedural pneumothorax. ACT 112: Negative or not required by law. The above report was generated using voice recognition software. It may contain grammatical, syntax or spelling errors. Electronically signed by: Peter Hughes M.D. 12/10/2019 7:20 AM
[2019-12-10 07:26] LABS: BUN Creatinine Ratio 18.8 (10-20); Calcium 8.3 mg/dl (8.5-10.1); Est GFR (African American) 142.2; Est GFR (Non-African American) 122.7; Magnesium 1.9 mg/dl (1.8-2.4); Potassium 3.1 mmol/L (3.5-5.1)
[2019-12-10 07:34] LABS: Basophils # (auto) 0.04 K/uL (0-0.2); Basophils % (auto) 0.2 %; Eosinophils # (auto) 0.09 K/uL (0-0.5); Eosinophils % (auto) 0.5 %; Immature Granulocytes # (auto) 0.16 K/uL (0.00-0.02); Immature Granulocytes % (auto) 0.8 %; Lymphocytes # (auto) 1.19 K/uL (1.2-3.4); Lymphocytes % (auto) 6.2 %; Monocytes # (auto) 2.07 K/uL (0.11-0.59); Monocytes % (auto) 10.8 %; Neutrophils % (auto) 81.5 %
[2019-12-10] MEDS ORDERED: POTASSIUM CHLORIDE 20 MEQ TABCR PO STA (07:39)
[2019-12-10] MEDS ORDERED: MAGNESIUM SULFATE / D5W 1 GM/100 ML BAG IV ONE (08:15)
[2019-12-10] MEDS: POTASSIUM CHLORIDE / WTR 10 MEQ/100 ML PLCT IV SCH ×2 (08:18→09:17)
[2019-12-10] MEDS: MAGNESIUM OXIDE 400 MG TAB PO SCH (08:25)
[2019-12-10] MEDS: METOPROLOL TARTRATE 100 MG TAB PO SCH (08:25)
[2019-12-10] MEDS: dilTIAZem HCL 240 MG CAPCR PO SCH (08:25)
[2019-12-10] MEDS: DOCUSATE SODIUM 100 MG CAP PO SCH (08:25)
--- NOTE | 2019-12-10 10:00 | Hospitalist Progress Note ---
Date of Service December 10, 2019 Assessment & Plan (1) Pleural effusion: status post lung biopsy status post chest tube placement -Patient was initially seen at [facility] on 11/16/2019 for Shortness of breath and was discharged from the ED for what was thought to be COPD exacerbation. Patient returned to [facility] on 11/27/2019 with Shortness of breath was found to have complicated pleural effusion that required pigtail catheter during the hospitalization. -after 10 days of hospitalization at [facility] and he was transferred to [facility] on 12/06/2019 for further evaluation by Cardiothoracic surgery service, Dr. Toro, and to rule out malignancy -Patient also with anemia Hgb 6.9 and was given 2 units of PRBC on 12/06/2019 -Cardiothoracic surgery service brought patient down to the operating room on 12/07/2019. patient's CT surgery report of Left thoracoscopy with partial pleurectomy and biopsy AND wedge biopsy of left upper lobe -the report by Dr. Toro that patient had hemorrhage during the procedure and estimates at least a liter of blood loss and the patient given 2 units of PRBC during the procedure -post-procedure CXR on 12/07/2019 1. Loculated left pleural effusion has decreased in size from comparison status post placement of two left basilar chest tubes. 2. Previously questioned left apical pneumothorax is not visualized on today's study. 3. Trace right pleural effusion. 4. Cardiomegaly with pulmonary vascular congestion and persistent left lung opacities. -Chest tube removed by Cardiothoracic Surgeon, Dr. Bart Toro on 12/09/2019; from the day of chest tube removal he instructs that the dressing will have to stay on until Tuesday12/12/2019 -follow up Chest X ray on 12/09/2019 (Status post removal of the two left-sided chest tubes. No definite pneumothorax identified. Mildly improved aeration of the left lung. Small right pleural effusion.) -CD of lung imaging on this hospitalization at [facility] to be given to patient on discharge -PLEURAL FLUID with RARE MESOTHELIAL CELLS AND SCATTERED MIXED INFLAMMATION; NEGATIVE FOR MALIGNANCY but Lung tissue pathology results from 12/07/2019 are pending -Hgb is 8.5 on 12/10/2019 (2) Anemia: Anemia with acute blood loss anemia - Initial Hgb: 8.9 on 11/27/2019 at [facility], down trended to 5.8 on 12/06/2019. Patient received [facility] PRBC blood transfusions. Pt was seen by heme/onc at [facility] concerned for possible malignancy. -12/05/2019 [facility] labs: Iron: 9 (reference 45-176), Iron Bindin ([id number] 425), Ferritin: 1379 (reference 30-400) - 12/06/2019 [facility] labs: folate: 8.4 (>4.5), B12: 488 (232-1245) -Patient with anemia and presented to [facility] on 12/06/2019 with Hgb 6.9 and was given 2 units of PRBC on 12/06/2019. Hgb is 8.7 in AM of 12/07/2019. then on 12/07/2019, patient had Left thoracoscopy with partial pleurectomy and biopsy AND wedge biopsy of left upper lobe; the report by Dr. Toro that patient had hemorrhage during the procedure and estimates at least a liter of blood loss and the patient given 2 units of PRBC during the procedure -Dr. Levy from CT surgery also transfused 1 PRBC on 12/08/2019 -Hgb is 8.9 on 12/09/2019 (3) Tachycardia: -noted to have tachycardia at [facility] for which his home dose beta blockers was modified and he also had calcium channel meet -sinus tachycardia -12/09/2019: overall, patient's heart rates have improved since blood transfusion on 12/08/[address] Toro. However still tachycardia on telemetry and on physical exam. prn pain medications -on metoprolol 100 mg BID, ditiazem to be increased from 180 mg daily to 240 mg daily starting on 12/09/2019 -serum magnesium 1.9 and serum potassium 3.1 on 12/10/2019, IV supplements given and recheck labs for noon time -discharge medications of metoprolol 100 mg twice a day and Diltiazem CD 240 mg daily sent electronically [place] [id number] [address] [place] [id number] Patient should no longer take previous home medications of amlodipine and losartan after hospital discharge Patient should follow up with primary care doctor in 1 week after hospital discharge (4) HTN (hypertension): History of hypertension -management with metoprolol and diltiazem (5) Hyponatremia: -Initial Na: 107 on 11/27/2019, treated with hypertonic saline at [facility] under direction of nephrology with repeat sodium of 128 on 12/06/2019 and suspecting to be from underlying malignancy -current serum sodium on 12/10/2019 is 127 (6) Alcohol use: -as per history, patient drinks 3 to 4 alcoholic drinks a day -Last alcoholic drink 11/26/2019. -alcohol use can contribute to hyponatremia -alcohol cessation encouraged (7) Tobacco use: -Denies nicotine patch use as outpatient -Encourage smoking cessation Full Code Patient's contact number for any pathology updates: [phone]; [phone] Admission and Anticipated Discharge Date Admission Date: December 06, 2019 Subjective Patient had tachycardia overnight. Patient received AM dose of metoprolol and AM dose of Diltiazem. Tachycardia appears resolved in day time. Patient denies chest pain. breathing on room air. no abdomen pain. Hospitalist and Dr. Toro both in the room and discussed current pathology results so far and hospital follow up directions. Patient receiving IV magnesium and IV potassium and agrees to lab recheck. Patient is determined to be discharge from hospital stay today Review of Systems Review of Systems: All systems reviewed & are unremarkable except as noted in HPI & below Physical Exam Constitutional: comfortable Eyes: PERRL, conjunctivae normal, anicteric sclerae EOM intact bilaterally ENMT: external ear and nose normal, oropharynx normal Neck: normal visual inspection Respiratory: normal respiratory effort Cardiovascular: Rate/Rhythm: regular rate Gastrointestinal (Abdomen): normal bowel sounds, soft, nontender, no hepatosplenomegaly Musculoskeletal: Head/Neck/Chest: normocephalic Neurologic: PERRL, EOMI, accommodation nl, no face palsy, no dysarthria CN's II-XI intact bilaterally Psychiatric: A+Ox3, euthymic affect Results & Data Results & Data ([facility]) Vital Signs (Past 12 Hours) Vital Signs Temp Pulse Resp BP BP Pulse Ox Pulse Ox 12/10/19 07:00 37.4 C 77 16 110/71 97 12/10/19 04:00 36.5 C 123 H 18 121/63 95 12/10/19 00:00 96 12/09/19 23:53 37.5 C 101 H 18 108/72 92
--- NOTE | 2019-12-10 10:59 | Surgery Progress Note ---
Date of Service December 10, 2019 Assessment & Plan (1) Mesothelioma: The patient is being discharged from the hospital today. He has been tachycardic for the last 2 weeks. This may be due to pericardial involvement by the mesothelioma. I did a partial pleurectomy on 12/07/2019 in order to control the hemorrhage from the tumor itself along the chest wall. I debulked it also. He has a very large tumor burden in his left lung. It is actually in the pleural lining. He does have some involvement of the lung. We are still awaiting immunohistochemical stains however, from a surgical perspective this is almost certainly a mesothelioma. Patient is on room air. Is ambulating in the hallway. He is eating well. He has peripheral edema which is dependent but this is improved. I am going to discuss this case with Dr. Desean Barriga who is his primary care physician. We will set him up to be seen by oncology after the final results are back. Present on Admission?: Yes Subjective "When can I go home?". Physical Exam Physical Exam: Patient's dressing is remained dry overnight although we did drain some after he pulled his chest tubes. I removed both his Pleurx catheter and his chest tube. I thought he sounded better on exam even though he does have decreased breath sounds. His saturation is 97% on room air. His lower extremity edema is better. He looks and feels better. Results & Data Vital Signs (Past 12 Hours) Vital Signs Temp Pulse Pulse Resp BP BP Pulse Ox 12/10/19 10:04 122 H 12/10/19 07:00 37.4 C 77 16 110/71 97 12/10/19 04:00 36.5 C 123 H 18 121/63 95 12/10/19 00:00 12/09/19 23:53 37.5 C 101 H 18 108/72 92 Pulse Ox 12/10/19 10:04 12/10/19 07:00 12/10/19 04:00 12/10/19 00:00 96 12/09/19 23:53 PG Care Time/CCT Total # of Minutes Spent Total Time Spent with Patient: Total time spent is greater than 50% in coordination of care (as documented) at patient's floor/unit and/or counseling patient: Coding Level of Care Code None Diagnoses Mesothelioma C45.9
--- NOTE | 2019-12-10 11:28 | Electrocardiogram Report ---
Test Reason : Blood Pressure : / mmHG Vent. Rate : 092 BPM Atrial Rate : 092 BPM P-R Int : 170 ms QRS Dur : 090 ms QT Int : 374 ms P-R-T Axes : 087 055 046 degrees QTc Int : 462 ms Poor data quality, interpretation may be adversely affected Sinus rhythm with Premature atrial complexes Low voltage QRS Borderline ECG When compared with ECG of 10-DEC-2019 10:06, (unconfirmed) No significant change was found Confirmed by Reji Saul ([id number]) on 12/10/2019 11:28:32 AM Referred By: REFERRED SELF Confirmed By:Dipesh Saul
[2019-12-10 12:25] VITALS: BP 111/75; PULSE 98; TEMP 98.1; O2SAT 98
[2019-12-10 12:26] LABS: BUN Creatinine Ratio 19.4 (10-20); Calcium 8.6 mg/dl (8.5-10.1); Creatinine Clr Calc Pharmacy 191.8 ml/min; Est GFR (African American) 148.4; Magnesium 2.1 mg/dl (1.8-2.4); Potassium 3.8 mmol/L (3.5-5.1)
--- NOTE | 2019-12-10 12:39 | Discharge Summary ---
Date of Service December 10, 2019 Admission HPI Per Admitting Provider Pt is 54 y/o M with PMH HTN, COPD, tobacco use, EtOH use presented to [facility] as transfer from [facility] for large left pleural effusion. Patient was initially seen at [facility] ED on 11/16/2019 for SOB and was treated for suspected COPD exacerbation with no imaging completed at that time and was discharged with albuterol inhaler. Patient returned to [facility] ER on 11/27/2019 for SOB. It is reported patient has had SOB, productive cough x1 month with decreased appetite without fever or chills. He was found to have pulse ox 90% on room air and chest x-ray with complete left-sided opacification and was admitted to hospital for further work-up and treatment. Patient had negative Legionella antigen. Pt had negative COVID-19 testing. -Pt had noncontrast CT chest on 11/27/19 with impression: Multiple left pleural nodules with massive left pleural effusion causing mass-effect with left lung collapse, rightward mediastinal shift, inversion of the left jono-diaphragm. -A pigtail catheter was placed. Patient had repeat contrast CT chest on 11/29/2019 with impression of decrease in the size of left pleural effusion with pigtail catheter in place in inferior aspect of the left hemithorax. Pt treated forpossible pneumonia. -Contrast CT chest on 12/03/2019: Impression redemonstration of complex left- sided pleural fluid collection with further decreased in volume from CT on 11/29/2019. Extensive pleural soft tissue nodularity implies malignancy, including some soft tissue that appears to be invading the chest wall. Left lower lobe cavitary mass and nodule. Resolving consolidation and groundglass opacity in the right lung favored to represent resolving acute lung injury, nonspecific but potentially related to aspiration of contralateral lung contents. Patient hospital course also complicated by hyponatremia with sodium of 107 on 11/27/2019. Being followed by nephrology and thought was euvolemic to slightly hypervolemic. Initially received hypertonic saline with repeat sodium of 128 on 12/06/2019. Patient also with anemia initial hemoglobin 8.9 and has down trended to 5.8 on 12/06/2019. Patient received PRBCs at [facility] (discharge summary reports 2 units), most recent PRBC transfusion this morning. Patient with noted tachycardia during hospital course. Patient was on home Lopressor 100 mg twice daily which was changed to Toprol-XL 100 mg twice daily. Cardiology was consulted and recommended continued beta-meet for rate management. Patient was felt to examine volume overloaded and is reported patient was given torsemide 20mg daily on 12/04/19 and 12/05/2019 started on IV Lasix 20mg BID. Had normal high-sensitivity troponin and proBNP unremarkable on 11/27/2019. Had echo 12/03/2019: Multifocal atrial tachycardia during the study. EF: 55-59. Non-dilated cardiac chambers. Mild tricuspid regurgitation. Pr oximal inferior vena cava is dilated. Dilated IVC with reduced collapsability with sniff indicates an elevated right atrial pressure of 15mmHg. The estimated pulmonary artery systolic pressure is 48mm Hg. 12/06/19 [facility] wishes to transfer patient secondary to needing thoracic surgeon evaluation. It is reported patient did not want to go to [facility] at this time and wished to go to [facility]. Dr. Toro was contacted and agrees to accept patient and is recommending thoracoscopy. Patient's reported heart at 109 with sinus tachycardia, BP 105/73, 93% on room air at time of discussion on the morning of 12/06/2019. Pt presents to [facility] and currently reports feeling good. Denies SOB, CP, dizziness. Denies fever/chills, diaphoresis, N/V/D/C, LEMUS, dizziness, syncope, vision changes, neck pain, orthopnea, palpitations, sore throat, choking, otalgia, rhinorrhea, abdominal pain, paresthesias, weakness, extremity weakness, extremity edema, rashes, urinary symptoms. Principal Diagnosis admission for chest tube placement for Left Pleural effusion, status post lung biopsy (Left thoracoscopy with partial pleurectomy and biopsy AND wedge biopsy of left upper lobe). Anemia with acute blood loss anemia, Tachycardia, Hyponatremia Discharge Exam Constitutional comfortable Eyes PERRL, conjunctivae normal, anicteric sclerae EOM intact bilaterally ENMT external ear and nose normal, oropharynx normal Neck normal visual inspection Respiratory normal respiratory effort Cardiovascular Rate/Rhythm: regular rate Gastrointestinal (Abdomen) normal bowel sounds, soft, nontender, no hepatosplenomegaly Musculoskeletal Head/Neck/Chest: normocephalic Neurologic PERRL, EOMI, accommodation nl, no face palsy, no dysarthria CN's II-XI intact bilaterally Psychiatric A+Ox3, euthymic affect Discharge Data Allergies Allergy/AdvReac Type Severity Reaction Status Date / Time hydrochlorothiazide AdvReac Mild DEHYDRATION Verified 10/11/16 10:08 Consultations 12/06/19 14:05 Consult Case Management - Discharge Planning Routine 12/06/19 16:30 Consult Thoracic Surgery Routine 12/09/19 14:32 Burn CD for patient Stat Procedures Performed Operation Date: 12/07/19 07:30 Actual Procedures p Left Video Assisted Thoracoscopy, Partial Pleurectomy, controlled bleeding and Left Lower Lobe Biopsy(Left) - Bart Toro MD, FACS Operation Date: 12/07/19 07:30 <No data on this case meets the specified criteria> Hospital Course (1) Pleural effusion: Left Pleural Effusion status post lung biopsy status post chest tube placement -Patient was initially seen at [facility] on 11/16/2019 for Shortness of breath and was discharged from the ED for what was thought to be COPD exacerbation. Patient returned to [facility] on 11/27/2019 with Shortness of breath was found to have complicated pleural effusion that required pigtail catheter during the hospitalization. -after 10 days of hospitalization at [facility] and he was transferred to [facility] on 12/06/2019 for further evaluation by Cardiothoracic surgery service, Dr. Toro, and to rule out malignancy -Patient also with anemia Hgb 6.9 and was given 2 units of PRBC on 12/06/2019 -Cardiothoracic surgery service brought patient down to the operating room on 12/07/2019. patient's CT surgery report of Left thoracoscopy with partial pleurectomy and biopsy AND wedge biopsy of left upper lobe -the report by Dr. Toro that patient had hemorrhage during the procedure and estimates at least a liter of blood loss and the patient given 2 units of PRBC during the procedure -post-procedure CXR on 12/07/2019 1. Loculated left pleural effusion has decreased in size from comparison status post placement of two left basilar chest tubes. 2. Previously questioned left apical pneumothorax is not visualized on today's study. 3. Trace right pleural effusion. 4. Cardiomegaly with pulmonary vascular congestion and persistent left lung opacities. -Chest tube removed by Cardiothoracic Surgeon, Dr. Bart Toro on 12/09/2019; from the day of chest tube removal he instructs that the dressing will have to stay on until Tuesday12/12/2019 -follow up Chest X ray on 12/09/2019 (Status post removal of the two left-sided chest tubes. No definite pneumothorax identified. Mildly improved aeration of the left lung. Small right pleural effusion.) -CD of lung imaging on this hospitalization at [facility] to be given to patient on discharge -PLEURAL FLUID with RARE MESOTHELIAL CELLS AND SCATTERED MIXED INFLAMMATION; NEGATIVE FOR MALIGNANCY but Lung tissue pathology results from 12/07/2019 are pending -Pathology Dr. Lester from pathology informed by telephone that final report will take several days but expresses concerns of malignancy on initial assessment. Dr. Toro updated and he reports that any concerns for mesothelio ma will be followed by him in conjunction with Dr. Rush who is patient's primary care doctor -Hgb is 8.5 on 12/10/2019 (2) Anemia: Anemia with acute blood loss anemia - Initial Hgb: 8.9 on 11/27/2019 at [facility], down trended to 5.8 on 12/06/2019. Patient received [facility] PRBC blood transfusions. Pt was seen by heme/onc at [facility] concerned for possible malignancy. -12/05/2019 [facility] labs: Iron: 9 (reference [id number]), Iron Bindin ([id number]), Ferritin: 1379 (reference 30-400) - 12/06/2019 [facility] labs: folate: 8.4 (>4.5), B12: 488 (232-1245) -Patient with anemia and presented to [facility] on 12/06/2019 with Hgb 6.9 and was given 2 units of PRBC on 12/06/2019. Hgb is 8.7 in AM of 12/07/2019. then on 12/07/2019, patient had Left thoracoscopy with partial pleurectomy and biopsy AND wedge biopsy of left upper lobe; the report by Dr. Toro that patient had hemorrhage during the procedure and estimates at least a liter of blood loss and the patient given 2 units of PRBC during the procedure -Dr. Levy from CT surgery also transfused 1 PRBC on 12/08/2019 -Hgb is 8.9 on 12/09/2019 (3) Tachycardia: -noted to have tachycardia at [facility] for which his home dose beta blockers was modified and he also had calcium channel meet -sinus tachycardia -12/09/2019: overall, patient's heart rates have improved since blood transfusion on 12/08/[address] Toro. However still tachycardia on telemetry and on physical exam. prn pain medications -on metoprolol 100 mg BID, ditiazem to be increased from 180 mg daily to 240 mg daily starting on 12/09/2019 -EKG shows sinus rhythm with premature atrial contractions without acute tachycardia. The PACs appears to be influencing the counting of heart rates on telemetry and telemetry is discontinued -serum magnesium 1.9 and serum potassium 3.1 on 12/10/2019, IV supplements given and rechecked labs as serum potassium 3.8 and serum magnesium 2.1 -discharge medications of metoprolol 100 mg twice a day and Diltiazem CD 240 mg daily sent electronically [address] 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 -alcohol use can contribute to hyponatremia -alcohol cessation encouraged (7) Tobacco use: -Denies nicotine patch use as outpatient -Encourage smoking cessation Full Code Patient's contact number for any pathology updates: [phone]; [phone] Total Time Total Time Spent Total Time Spent (In Minutes): 40 minutes Total Time Includes: Examination of the Patient, Discharge Planning, Medication Reconciliation and Communication With Other Providers Discharge Plan Discharge Items Patient Disposition: Home - Self-Care Reason For Visit: LEFT PLEURAL EFFUSION Discharge Diagnosis: admission for chest tube placement for Left Pleural effusion, status post lung biopsy (Left thoracoscopy with partial pleurectomy and biopsy AND wedge biopsy of left upper lobe). Anemia with acute blood loss anemia, Tachycardia, Hyponatremia Condition on Discharge: Fair Activity: Per Instructions section Non-emergency contact: Primary Care Provider Call non-emergency contact if: you have any medication questions Follow-up/Referrals: Desean Barriga MD [Primary Care Provider] - Diet: Heart Healthy Add Attending Provider Instructions: -discharge medications of metoprolol 100 mg twice a day and Diltiazem CD 240 mg daily sent electronically [address] [place] [address] Patient should no longer take previous home medications of amlodipine and losartan after hospital discharge Patient should follow up with primary care doctor in 1 week after hospital discharge Addtl Boathouse Keeper Provider Instructions: status post lung biopsy status post chest tube placement -Patient was initially seen at [facility] on 11/16/2019 for Shortness of breath and was discharged from the ED for what was thought to be COPD exacerbation. Patient returned to [facility] on 11/27/2019 with Shortness of breath was found to have complicated pleural effusion that required pigtail catheter during the hospitalization. -after 10 days of hospitalization at [facility] and he was transferred to [facility] on 12/06/2019 for further evaluation by Cardiothoracic surgery service, Dr. Toro, and to rule out malignancy -Patient also with anemia Hgb 6.9 and was given 2 units of PRBC on 12/06/2019 -Cardiothoracic surgery service brought patient down to the operating room on 12/07/2019. patient's CT surgery report of Left thoracoscopy with partial pleurectomy and biopsy AND wedge biopsy of left upper lobe -the report by Dr. Toro that patient had hemorrhage during the procedure and estimates at least a liter of blood loss and the patient given 2 units of PRBC during the procedure -12/07/2019 pleural fluid no organism seen on gram stain, no acid fast bacilli, no yeast, no fungus -Lung pathology results are from 12/07/2019 are pending -post-procedure Chest X Ray on 12/07/2019: Loculated left pleural effusion has decreased in size from comparison status post placement of two left basilar chest tubes. Previously questioned left apical pneumothorax is not visualized on today's study.Trace right pleural effusion. Cardiomegaly with pulmonary vascular congestion and persistent left lung opacities. Chest tube removed by Cardiothoracic Surgeon, Dr. Bart Toro on 12/09/2019; from the day of chest tube removal he instructs that the dressing will have to stay on until Tuesday12/12/2019 follow up Chest X ray on 12/09/2019 (Status post removal of the two left-sided chest tubes. No definite pneumothorax identified. Mildly improved aeration of the left lung. Small right pleural effusion.) CD of lung imaging on this hospitalization at [facility] to be given to patient on discharge Hgb is 8.9 on 12/09/2019. 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 Lester from pathology informed by telephone that final report will take several days but expresses concerns of malignancy on initial assessment. Dr. Toro updated and he reports that any concerns for mesothelioma will be followed by him in conjunction with Dr. Rush who is patient's primary care doctor Stand-Alone Forms: My [facility] Health, Smoking Cessation Medications and DC Order Prescriptions: Discontinued amlodipine 10 mg tablet 10 mg PO DAILY Qty: 90 RF: 3 metoprolol tartrate 100 mg tablet 100 mg PO BID Qty: 180 RF: 3 benazepril 20 mg tablet 20 mg PO DAILY RF: 0 Discharge Orders: Discharge Order (Routine); Ordered 12/10/19 Ordered By: Solo Jordan/Other Patient Handouts: Pleural Effusion, Respiratory Infect Common Prev ention Admission Data Admit Date/Time: 12/06/19 14:04 Attending Provider: Solo Lovett Admit Provider: Karla Dawson Primary Care Provider: Desean Barriga Other Providers: Bart Toro
--- NOTE | 2019-12-18 11:30 | Coding Query ---
PATHOLOGY To promote full compliance with coding requirements relating to patient care, physician participation is requested in all cases of public welfare director uncertainty. Please assist us with the question(s) below: Please review the Pathology reports and please document any relevant diagnosis(es) below: Diagnosis(es):We don't yet know what this patient's pathology represents. Thank you Asiya GARCIA
--- NOTE | 2019-12-18 11:33 | Coding Query ---
1. Your help is needed for correct coding of this account; please clarify if the patients air leak was: ( X ) expected out of the surgery ( ) unexpected complication from the surgery ( )other please specify 2. Your help is needed for correct coding of this account; please clarify if the hemorrhage during the procedure was: ( ) expected out of the surgery (X ) unexpected complication from the surgery ( )other please specify Thank you Asiya GARCIA
== END 2019-12-10 13:28 | disposition home or self-care (01) | DRG 164 ==
LOC: 2S 13:28 → SUATTDRO 14:04 → 2S 14:04